=== PATIENT | male | born 1945 | race Caucasian/White ===

== ENCOUNTER → 2017-08-24 11:31 | Outpatient (CLI) | payer MEDICARE, SELFPAY ==
[2017-08-27 15:34] LABS: AST(SGOT) 24 U/L (15-37); Alanine Aminotransfer ALT/SGPT 19 U/L (16-61); Cholesterol 161 mg/dL (200); High Density Lipoprotein 34 mg/dL; Thyroid Stim Hormone (TSH) 1.48 uIU/mL (0.358-3.74); Triglycerides 94 mg/dL; Very Low Density Lipoprotein 19 mg/dL (5-40)
== END ==
PROVIDERS: Family Provider Family Medicine; PCP Family Medicine; Visit Provider Urology
DX: Z12.5 Encounter for screening for malignant neoplasm of prostate (principal); E03.9 Hypothyroidism, unspecified; E78.5 Hyperlipidemia, unspecified; E29.1 Testicular hypofunction
CPT/HCPCS: 36415; 80061; 84153; 84403; 84436; 84443; 84450; 84460; G0103

== ENCOUNTER 2017-10-22 09:30 | Outpatient (RCR) | payer MEDICARE, SELFPAY ==
--- NOTE | 2017-04-06 17:00 | HP.PTEVAL_ITS ---
Patient's Visit Information JORDYN HOUSE is a 71 year old M referred to Physical Therapy by Out of Town Doctor tawanda with a diagnosis of Parkinsons. Date of Evaluation: 04/06/17 Physical Therapist: Lida Schroeder - Visit Plan Frequency: 1x/Week Duration: 2 Months Plan: Timed get up and go test. 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 Taking Rytary extended relase drug and he takes 3 capsules 4X/ day. He gets about 2 good hours out of a 4 hour interval. Pt reports that he is having trouble when he runs out of forgets to take his meds.....his R ankle freezes more than the L (that started in the last year). He has been having trouble freezing when walks recently. He reports no trouble on stairs but always holds both hand rails. He has no hard falls...little slips here and there and able to catch himself. He has a rollator that he uses only occ. He uses the cane/walking stick when he goes out side at home. Inside the home he uses the furniture around the house. Getting in and out of the car is troublesome at times, especially outside of his medicine cycle. Pt wants to work on his balance with his eyes closed, increasing his stride - Objective Gait: pt walks with a very small step length and shuffled gait (can hear both feet scraping along the floor with gait), decreased arm swing and trunk swing, flexed trunk. FGA:16. LE MMT: hip flex, hip abd B 4+/5, B knee flex and knee. 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 Goal Time Frame: 6-8 Weeks Goal 3:: Be able to get up from the ground with out assistance incase he falls where there is nothing around with SBA Goal Time Frame: 6-8 Weeks Goal 4:: Increase FGA Goal 5:: Walking BW 68 feet X2 with increased stride Goal 6:: Test time get up and go to get a baseline and set a goal. Goal Time Frame: 1 Week - Rehabilitation Potential Rehabilitation Potential: Good - Anticipated Interventions Patient/Client Instruction: Educate patient on: Plan of Care For the Purpose of:: To improve muscle performance and motor function, To improve ability to perform ADL's, To increase tolerance to activity/condition/ position, To improve performance and independence with ADL's, To decrease level of supervision to perform tasks, To improve ability of physical actions for home /community/work/leisure, To improve gait and locomotor functions, To improve balance, To improve safety with gait Therapeutic Exercise to Include: Strength training, Balance training, Body mechanics, Postural training For the Purpose of:: To improve muscle performance and motor function, To improve ability to perform ADL's, To increase tolerance to activity/condition/ position, To improve performance and independence with ADL's, To decrease level of supervision to perform tasks, To improve gait and locomotor functions, To improve health of tissue, To improve balance, To improve safety with gait Functional Training to Include: Gait training For the Purpose of:: To improve performance and independence with ADL's, To improve gait and locomotor functions Thank you for the opportunity to evaluate your patient. For Medicare and Medicare HMO plans, please review the plan of care and approve it. It will need to be FAXED BACK to us at [phone] for Medicare purposes. Please let me know if there are questions or concerns regarding this plan of care. Physician Signature: Date:
--- NOTE | 2017-06-09 13:56 | HP.PTREVAL ---
tawanda THOMAS It has been my pleasure to treat JORDYN HOUSE over the last 10 visits for Parkinsons. Please see the progress note below for an update on the physical therapy plan of care! Subjective: Overall pt feels that he is pretty much the same. He still reports that he can not hop, he has trouble with balance in the dark or when working overhead. Objective/Function: FGA 17. Able to get up from the floor from a sitting to a standing position with SBA without UE support. Able to walk BW but needs VC's to increase stride and to keep trunk upright and to shift weight from the front to the back. Occ LOB and CGA used. Pt reports that he still uses the bar in the shower for safety. Pt needs to be reminded to have upright posture, to keep a larger step with gait and arm swing. Plan Plan: 1X/ week for 2 additional weeks to work on increasing stride with fw, bw walking, balance activities, wiorking on overhead activities. 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 Goal Time Frame: 6-8 Weeks Goal Progress: Progressing Goal 3:: Be able to get up from the ground with out assistance incase he falls where there is nothing around with SBA Goal Time Frame: 6-8 Weeks Goal Progress: Goal Met Goal 4:: Increase FGA by 2 points to a score of 19 to decrease fall risk Goal 5:: Walking BW 68 feet X2 with increased stride Goal Time Frame: 2 Weeks Goal Progress: Progressing Goal 6:: Test time get up and go to get a baseline and set a goal. Goal Time Frame: 1 Week Goal Progress: Goal Met Anticipated Interventions Patient/Client Instruction: Educate patient on: Plan of Care For the Purpose of:: To improve muscle performance and motor function, To improve ability to perform ADL's, To increase tolerance to activity/condition/position, To improve performance and independence with ADL's, To decrease level of supervision to perform tasks, To improve ability of physical actions for home/community/work/leisure, To improve gait and locomotor functions, To improve balance, To improve safety with gait Therapeutic Exercise to Include: Strength training, Balance training, Body mechanics, Postural training For the Purpose of:: To improve muscle performance and motor function, To improve ability to perform ADL's, To increase tolerance to activity/condition/position, To improve performance and independence with ADL's, To decrease level of supervision to perform tasks, To improve gait and locomotor functions, To improve health of tissue, To improve balance, To improve safety with gait Functional Training to Include: Gait training For the Purpose of:: To improve performance and independence with ADL's, To improve gait and locomotor functions Please do not hesitate to contact me at [phone] by phone or if you have questions or concerns regarding this new plan of care! Sincerely, Lida Schroeder
--- NOTE | 2017-06-23 13:47 | HP.PTEVAL_ITS ---
Patient's Visit Information JORDYN HOUSE is a 72 year old M referred to Physical Therapy by CANDIDO neff with a diagnosis of Parkinsons. 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 Taking Rytary extended relase drug and he takes 3 capsules 4X/ day. He gets about 2 good hours out of a 4 hour interval. Pt reports that he is having trouble when he runs out of forgets to take his meds.....his R ankle freezes more than the L (that started in the last year). He has been having trouble freezing when walks recently. He reports no trouble on stairs but always holds both hand rails. He has no hard falls...little slips here and there and able to catch himself. He has a rollator that he uses only occ. He uses the cane/walking stick when he goes out side at home. Inside the home he uses the furniture around the house. Getting in and out of the car is troublesome at times, especially outside of his medicine cycle. Pt wants to work on his balance with his eyes closed, increasing his stride - Pain leg and ankle pain Pain Intensity (Out of 10): 5 back pain Pain Intensity (Out of 10): 1 - Objective Gait: pt walks with a very small step length and shuffled gait (can hear both feet scraping along the floor with gait), decreased arm swing and trunk swing, flexed trunk. FGA:16. LE MMT: hip flex, hip abd B 4+/5, B knee flex and knee. 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 Goal Time Frame: 6-8 Weeks Goal 3:: Be able to get up from the ground with out assistance incase he falls where there is nothing around with SBA Goal Time Frame: 6-8 Weeks Goal 4:: Increase FGA by 2 points to a score of 19 to decrease fall risk Goal 5:: Walking BW 68 feet X2 with increased stride Goal Time Frame: 2 Weeks Goal 6:: Test time get up and go to get a baseline and set a goal. Goal Time Frame: 1 Week - Rehabilitation Potential Rehabilitation Potential: Good - Anticipated Interventions Patient/Client Instruction: Educate patient on: Plan of Care For the Purpose of:: To improve muscle performance and motor function, To improve ability to perform ADL's, To increase tolerance to activity/condition/ position, To improve performance and independence with ADL's, To decrease level of supervision to perform tasks, To improve ability of physical actions for home /community/work/leisure, To improve gait and locomotor functions, To improve balance, To improve safety with gait Therapeutic Exercise to Include: Strength training, Balance training, Body mechanics, Postural training For the Purpose of:: To improve muscle performance and motor function, To improve ability to perform ADL's, To increase tolerance to activity/condition/ position, To improve performance and independence with ADL's, To decrease level of supervision to perform tasks, To improve gait and locomotor functions, To improve health of tissue, To improve balance, To improve safety with gait Functional Training to Include: Gait training For the Purpose of:: To improve performance and independence with ADL's, To improve gait and locomotor functions Thank you for the opportunity to evaluate your patient. For Medicare and Medicare HMO plans, please review the plan of care and approve it. It will need to be FAXED BACK to us at [phone] for Medicare purposes. Please let me know if there are questions or concerns regarding this plan of care. Physician Signature: Date:
--- NOTE | 2017-09-15 17:10 | HP.PTREVAL_ITS ---
CANDIDO SON, It has been my pleasure to treat JORDYN HOUSE over the last 13 visits for Parkinsons. Please see the progress note below for an update on the physical therapy plan of care! Subjective: Pt was never properly discharged and his chart was still open from 2 months ago and pt returns to PT with order for PT due to decreasing function per pt subjective. Pt has been on Rotary and now is on an additional med that will help him to have more on time. He has about 2 hours or less on a 4 hour cycle. He reports that he is back to hobbling, his voice is less, he had a fall in the [employer] restaurant as he was trying to hurry and he fell on hands out the door at the restaurant. He is using the can all the time (at least carries it, due to being afraid that off time will happen and he will need his cane). He had 1 shot of botox and a small area....he felt he had no reaction and sees her again in about 1.5 months. Objective/Function: FGA: 14. Gait: pt walks with short stride on the R with fw and bw walking. He walks with flexed trunk and almost more toe walking at this point as apposed to heel to toe gait pattern. He struggles with hip marching and performing motion with slow controlled movement. Stairs: up and down recip with 2 hand rails with decreased hip flexion and he catches his heel on the step periodically. Side stepping: decreased coordination on the R LE ( decreased stride and keeps R foot in front of the L). LE MMT: hip flex, abd, hip ext B 4+/5, B knee flex and ext 4+/5...... Tight B gastroc and HS. Standing on foam with feet together ,,,starts with retro LOB at approx 20 seconds. Standing on foam with feet together with EC... Retro LOB almost immed....Pt does not like to shift his weight. Turn quickly... needs to take a few seconds and steps to make full turn...wide steps. 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 Goal Time Frame: 6-8 Weeks Goal Progress: Progressing Goal 3:: Be able to get up from the ground with out assistance incase he falls where there is nothing around with SBA Goal Time Frame: 6-8 Weeks Goal Progress: Goal Met Goal 4:: Increase FGA by 5 points to a score of 19 to decrease fall risk Goal Progress: Goal Met Goal 5:: Walking BW 68 feet X2 with increased stride Goal Time Frame: 2 Weeks Goal Progress: Progressing Goal 6:: Be able to walk entire lap around dept with increase stride length and arm swing with one reminder to continue to walk with large stride Goal Time Frame: 4-6 Weeks Goal Progress: Goal Met Anticipated Interventions Patient/Client Instruction: Educate patient on: Plan of Care For the Purpose of:: To improve muscle performance and motor function, To improve ability to perform ADL's, To increase tolerance to activity/condition/ position, To improve performance and independence with ADL's, To decrease level of supervision to perform tasks, To improve ability of physical actions for home /community/work/leisure, To improve gait and locomotor functions, To improve balance, To improve safety with gait Therapeutic Exercise to Include: Strength training, Balance training, Body mechanics, Postural training For the Purpose of:: To improve muscle performance and motor function, To improve ability to perform ADL's, To increase tolerance to activity/condition/ position, To improve performance and independence with ADL's, To decrease level of supervision to perform tasks, To improve gait and locomotor functions, To improve health of tissue, To improve balance, To improve safety with gait Functional Training to Include: Gait training For the Purpose of:: To improve performance and independence with ADL's, To improve gait and locomotor functions Please do not hesitate to contact me at [phone] by phone or Fax: if you have questions or concerns regarding this new plan of care! Sincerely, Lida Schroeder
--- NOTE | 2017-10-22 10:53 | HP.PTREVAL_ITS ---
CANDIDO SON, It has been my pleasure to treat JORDYN HOUSE over the last 18 visits for Parkinsons. Please see the progress note below for an update on the physical therapy plan of care! Subjective: Pt reports that he is going to get his battery changed in his brain stimulator next week. He is going to cancel the rest of his appointments and re -schedule when he is able. Objective/Function: Gait: pt is catching R toe/ foot a lot more than used too. Pt needs to be reminded to walk with increase arm swing and stride. Tight B gastroc and HS. Plan Plan: Pt to have start with foam rolling and stretching. Pt to look into getting an ankle brace/AFO. Pt will schedule after surgery when able. 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 Goal Time Frame: 6-8 Weeks Goal Progress: Progressing Goal 3:: Be able to get up from the ground with out assistance incase he falls where there is nothing around with SBA Goal Time Frame: 6-8 Weeks Goal Progress: Goal Met Goal 4:: Increase FGA by 5 points to a score of 19 to decrease fall risk Goal Progress: Goal Met Goal 5:: Walking BW 68 feet X2 with increased stride Goal Time Frame: 2 Weeks Goal Progress: Progressing Goal 6:: Be able to walk entire lap around dept with increase stride length and arm swing with one reminder to continue to walk with large stride Goal Time Frame: 4-6 Weeks Goal Progress: Goal Met Anticipated Interventions Patient/Client Instruction: Educate patient on: Plan of Care For the Purpose of:: To improve muscle performance and motor function, To improve ability to perform ADL's, To increase tolerance to activity/condition/ position, To improve performance and independence with ADL's, To decrease level of supervision to perform tasks, To improve ability of physical actions for home /community/work/leisure, To improve gait and locomotor functions, To improve balance, To improve safety with gait Therapeutic Exercise to Include: Strength training, Balance training, Body mechanics, Postural training For the Purpose of:: To improve muscle performance and motor function, To improve ability to perform ADL's, To increase tolerance to activity/condition/ position, To improve performance and independence with ADL's, To decrease level of supervision to perform tasks, To improve gait and locomotor functions, To improve health of tissue, To improve balance, To improve safety with gait Functional Training to Include: Gait training For the Purpose of:: To improve performance and independence with ADL's, To improve gait and locomotor functions Please do not hesitate to contact me at [phone] by phone or Fax: if you have questions or concerns regarding this new plan of care! Sincerely, Lida Schroeder
== END 2017-10-22 19:00 | disposition home or self-care (01) ==
LOC: PT 09:30
PROVIDERS: Family Provider Family Medicine; PCP Family Medicine
DX: G20 Parkinson's disease (principal); R13.10 Dysphagia, unspecified
CPT/HCPCS: 92507; 92526; 97110; 97116; 97161; 97164; 97530

== ENCOUNTER 2017-12-22 11:30 | Outpatient (RCR) | payer MEDICARE, SELFPAY ==
--- NOTE | 2017-11-12 13:07 | HP.PTREVAL ---
CANDIDO FRY, It has been my pleasure to treat JORDYN HOUSE over the last 19 visits for Parkinsons. Please see the progress note below for an update on the physical therapy plan of care! Subjective: Pt reports that the battery change went well. He feels that he is in limbo between the neurologist and other Dr as Candido is switching practices. He left his AtARIE AT HOME AND HAS NOT HAD IT IN HIS BODY SINCE 6 AM. Pt gets Botex in R ankle next Wednesday. Pt is occ rolling legs at home but wants them done today. Objective/Function: Could really tell that pt did not have his meds today...hard to get big steps in today even with verbal and tactile cues. Plan Plan: Pt to talk to kala Fraga about AFO and see if they feel that he needs it. Goals Goal 1:: I HEP Goal Time Frame: 6-8 Weeks Goal 2:: flakeboard line tender the shower and wash face with having eyes closed without having to hold onto the bar. Goal Time Frame: 6-8 Weeks Goal 3:: Be able to get up from the ground without assistance incase he falls where there is nothing around with SBA Goal Time Frame: 6-8 Weeks Goal 4:: Increase FGA by 5 points to a score of 19 to decrease fall risk Goal Time Frame: 4-6 Weeks Goal 5:: Walking BW 68 feet X 2 with increased stride Goal 6:: Be able to walk entire lap around department with increase stride length and arm swing with one reminder to continue to walk with larger stride Goal Time Frame: 4-6 Weeks Anticipated Interventions Please do not hesitate to contact me at [phone] by phone or if you have questions or concerns regarding this new plan of care! Sincerely, Lida Schroeder
--- NOTE | 2017-11-26 14:01 | HP.PTREVAL ---
CANDIDO FRY, It has been my pleasure to treat JORDYN HOUSE over the last 21 visits for Parkinsons. Please see the progress note below for an update on the physical therapy plan of care! Subjective: Pt reports that he thinks that the botox injections have helped for a few days and not sure how they are working. Pt gets a couple of hours a day that he can not walk. Objective/Function: Gait: Around dept 1 min 30 seconds with 4 verbal cueues to get trubnk back and pickling solution maker R foot with gait. Stairs: up and down recip with 2 hand rails. get up from the floor: Indep with no UE support. BW walking: short stride and decreased stride on the R. Plan Plan: G code next visit. Pt to talk to ekaterinaox about AFO and see if they feel that he needs it. 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 Goal Time Frame: 6-8 Weeks Goal Progress: Goal Met Goal 3:: Be able to get up from the ground without assistance incase he falls where there is nothing around with SBA Goal Time Frame: 6-8 Weeks Goal Progress: Goal Met Goal 4:: Increase FGA by 5 points to a score of 19 to decrease fall risk Goal Time Frame: 4-6 Weeks Goal 5:: Walking BW 68 feet X 2 with increased stride Goal Progress: Progressing Goal 6:: Be able to walk entire lap around department with increase stride length and arm swing with one reminder to continue to walk with larger stride Goal Time Frame: 4-6 Weeks Anticipated Interventions Please do not hesitate to contact me at [phone] by phone or if you have questions or concerns regarding this new plan of care! Sincerely, Lida Schroeder
--- NOTE | 2017-12-22 13:39 | HP.PTDCSUM ---
HP - PT D/C Summary It has been my pleasure to treat JORDYN HOUSE under orders from CANDIDO FRY, for the diagnosis of Parkinsons for a total of 24 visit(s). Discharge Date: 12/22/17 Please see the following information for a summary of their discharge status. - Subjective Subjective: Pt reports that ankle spasms are decreasing. He is foam rolling 1-2X/ week. Pt will be coming in for H&W on Mondays and Fridays and he will do things at home. - Pain R ankle Pain Intensity (Out of 10): 6 L shoulder Pain Intensity (Out of 10): 4 back pain Pain Intensity (Out of 10): 3 - Overall Improvement % Improvement: 90 - Objective Objective/Function: Able to walk around the entire department 1 lap without verbal cues with increase stride (still decreased heel to toe especially on the R) and increase arm swing with upright posture. Able to walk BW 68 feet without verbal cues or LOB. 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 Goal Progress: Goal Met Goal 3:: Be able to get up from the ground without assistance incase he falls where there is nothing around with SBA Goal Progress: Goal Met Goal 4:: Increase FGA by 5 points to a score of 19 to decrease fall risk Goal Progress: Goal Met Goal 5:: Walking BW 68 feet X 2 with increased stride Goal Progress: Goal Met Goal 6:: Be able to walk entire lap around department with increase stride length and arm swing with one reminder to continue to walk with larger stride Goal Progress: Goal Met - Plan Plan: DC PT to [facility] with understanding of what exercises to do at home. - D/C Information Discharge Comments: DC PT If there are questions or concerns regarding this patient's physical therapy, please feel free to call me at [phone]. Thank you for the referral of this patient. Sincerely, Lida Schroeder
== END 2017-12-22 19:00 | disposition home or self-care (01) ==
LOC: PT 11:30
PROVIDERS: Family Provider Family Medicine; PCP Family Medicine
DX: G20 Parkinson's disease (principal); R13.10 Dysphagia, unspecified
CPT/HCPCS: 97110; 97530

== ENCOUNTER 2018-08-02 11:00 | Outpatient (RCR) | payer MEDICARE, SELFPAY ==
--- NOTE | 2018-04-06 15:50 | HP.PTEVAL ---
Patient's Visit Information JORDYN HOUSE is a 72 year old M referred to Physical Therapy by Lorena Fulton MD with a diagnosis of Parkinson's Disease. Date of Evaluation: 04/06/18 Physical Therapist: KENYA Kya - Visit Plan Frequency: 1x/Week Duration: 3 Months Plan: 1X/ week for 12 weeks for high level gait activites/mechanics, balance activities, coordination activities, functional activities such as stairs, transfering in and out of bed and a car, multi-tasking activities with and without walking. with HEP and H&W program. - Subjective Findings: Several years ago he started with deep brain stimulation, He does botox in his R leg and has a follow up with them soon with his Dr Guzman at . He reports that he had a bad fall outside when he got his foot caught inside a soft log and then he fell trying to get back up (twice fw and once BW) and he was also squating once and could not get up. He is having trouble doing anything at the end of his med cycle. He is continuing to work outside as his meds alot. Pt reports some bug like hallucinations since his meds are super high...sometimes he will see crickets crawling across the floor. 1 story home... 2 rails to the basement. He reports that his balance is good unless he isdown on his med cycle. His R ankle has spasm issues... - Pain R ankle pain Pain Intensity (Out of 10): 5 - Objective Gait: Walks with decreased stride, decreased step length and decreased fluidity of step with the R LE, Takes a bigger step with the L leg. slower gait with fw flexed trunk. Needs verbal cues to increase step length and increase speed. Even wth VC's pt will pick remover step length and speed and will slow within the first 5 ssteps and revert back to small shuffled gait with L stride longer than R. He uses a can at times for balance. CATSIB: 75/120. FGA: 12 (pt had decreased balance when looking R and L) His steps decreased in length when an additional task was added such as turning his head or having a conversation. Stairs: pt had some issue with getting his whole foot on the step to ascend stairs but and some eccentric weakness present. Used 2 rails and did a reciprical pattern. L 12 degrees DF and 30 degrees PF. R 0 degrees DF and 30 degrees PF. Rolling: pt struggled with rolling side to side ...decreased motor planning. LE MMT: R ankle DF 4-/5 and L 4+/5, hip flex B 4+/5, hip abd B 4+/5, full ROM bridge, knee flex and knee xt B 4+/5. Pt was able to heel raise. His R foot would only toe raise approx 1/4 normal ROM of the pt;s L foot. Sit to stand: able to stand without the use of his UE's. B HS tightness present - Balance Scores Functional Gait Assessment Score: 12 % Disability: 60.0000 CATSIB Score (Max score 120 seconds): 75 - Goals Goal 1:: I HEP Goal Time Frame: 8-12 Weeks Goal 2:: Be able to roll over on the mat table on first attempt without hesitency Goal Time Frame: 8-12 Weeks Goal 3:: Be able to walk 200 feet with large step length and increased speed without LOB and SBA Goal Time Frame: 8-12 Weeks Goal 4:: Be able to walk 65 feet with head turns and be able to keep stride length and bret consistent. Goal Time Frame: 8-12 Weeks Goal 5:: Increase hamstring length to be able to long sit comfortably Goal Time Frame: 8-12 Weeks - Rehabilitation Potential Rehabilitation Potential: Good - Anticipated Interventions Patient/Client Instruction: Educate patient on: Condition, Plan of Care For the Purpose of:: To increase ROM, To improve muscle performance and motor function, To improve ability to perform ADL's, To increase tolerance to activity/condition/position, To improve performance and independence with ADL's, To decrease level of supervision to perform tasks, To improve ability of physical actions for home/community/work/leisure, To improve gait and locomotor functions, To increase flexibility/ROM, To improve balance Therapeutic Exercise to Include: Strength training, Endurance training, Balance training, Coordination, Postural training, Flexibilty training, Gait and locomotor training, Neuromotor development, Passive ROM, Active ROM, Scapular Strength/Stabilization For the Purpose of:: To improve nutrient delivery to tissue, To increase oxygenation perfusion, To improve muscle performance and motor function, To improve ability to perform ADL's, To increase tolerance to activity/condition/position, To improve performance and independence with ADL's, To decrease level of supervision to perform tasks, To improve ability of physical actions for home/community/work/leisure, To improve gait and locomotor functions, To increase flexibility/ROM, To improve endurance, To improve balance, To improve safety with gait Functional Training to Include: Functional home training, Gait training For the Purpose of:: To improve nutrient delivery to tissue, To improve muscle performance and motor function, To improve ability to perform ADL's, To increase tolerance to activity/condition/position, To improve performance and independence with ADL's, To increase flexibility/ROM, To improve safety with gait Thank you for the opportunity to evaluate your patient. For Medicare and Medicare HMO plans, please review the plan of care and approve it. It will need to be FAXED BACK to us at [phone] for Medicare purposes. For Medicare only, by signing this I certify the plan of care. Please let me know if there are questions or concerns regarding this plan of care. Physician Signature: Date:
--- NOTE | 2018-06-24 12:03 | HP.PTREVAL_ITS ---
Lorena Fulton MD, It has been my pleasure to treat JORDYN HOUSE over the last 10 visits for Parkinson's Disease. Please see the progress note below for an update on the physical therapy plan of care! Subjective: Pt reports that he thinks that his Dr appointment is in about 6 weeks. He has fallen 6 times recently. He has his normal ankle pain today. He reports that he could not walk this morning. It took him an hour to dress himself. His voice is not so good. He is seeing imaginary things all the time (flying bugs). The DTD class makes him feel good...he comes home tired. Pt plans on starting to garden soon and he likes to do them on his hands and knees. Objective/Function: Pt is able to slow his gait with somewhat normal step length if we give verbal and tactile cues. Pt still struggles with HS tightness in Long sitting. He is able to roll side to side with less struggle but with some still present. Plan Plan: Re-assess next visit. 1X/ week for 12 weeks for high level gait activites/mechanics, balance activities, coordination activities, functional activities such as stairs, transfering in and out of bed and a car, multi- tasking activities with and without walking. with HEP and H&W program. Goals Goal 1:: I HEP Goal Time Frame: 8-12 Weeks Goal Progress: Progressing Goal 2:: Be able to roll over on the mat table on first attempt without hesitency Goal Time Frame: 8-12 Weeks Goal Progress: Progressing Goal 3:: Be able to walk 200 feet with large step length and increased speed without LOB and SBA Goal Time Frame: 8-12 Weeks Goal Progress: Progressing Goal 4:: Be able to walk 65 feet with head turns and be able to keep stride length and bret consistent. Goal Time Frame: 8-12 Weeks Goal Progress: Progressing Goal 5:: Increase hamstring length to be able to long sit comfortably Goal Time Frame: 8-12 Weeks Goal Progress: Progressing Anticipated Interventions Patient/Client Instruction: Educate patient on: Condition, Plan of Care For the Purpose of:: To increase ROM, To improve muscle performance and motor function, To improve ability to perform ADL's, To increase tolerance to activity/condition/position, To improve performance and independence with ADL's, To decrease level of supervision to perform tasks, To improve ability of physical actions for home/community/work/leisure, To improve gait and locomotor functions, To increase flexibility/ROM, To improve balance Therapeutic Exercise to Include: Strength training, Endurance training, Balance training, Coordination, Postural training, Flexibilty training, Gait and locomotor training, Neuromotor development, Passive ROM, Active ROM, Scapular Strength/Stabilization For the Purpose of:: To improve nutrient delivery to tissue, To increase oxygenation perfusion, To improve muscle performance and motor function, To improve ability to perform ADL's, To increase tolerance to activity/condition/position, To improve performance and independence with ADL's, To decrease level of supervision to perform tasks, To improve ability of physical actions for home/community/work/leisure, To improve gait and locomotor functions, To increase flexibility/ROM, To improve endurance, To improve balance, To improve safety with gait Functional Training to Include: Functional home training, Gait training For the Purpose of:: To improve nutrient delivery to tissue, To improve muscle performance and motor function, To improve ability to perform ADL's, To increase tolerance to activity/condition/position, To improve performance and indep endence with ADL's, To increase flexibility/ROM, To improve safety with gait Please do not hesitate to contact me at [phone] by phone or if you have questions or concerns regarding this new plan of care! Sincerely, KENYA Kay
--- NOTE | 2018-08-02 11:56 | HP.PTDCSUM ---
HP - PT D/C Summary It has been my pleasure to treat JORDYN HOUSE under orders from Lorena Fulton MD, for the diagnosis of Parkinson's Disease for a total of 16 visit(s). Discharge Date: 08/02/18 Please see the following information for a summary of their discharge status. - Subjective Subjective: Pt reports that he had about 2 hours without any issie of leg pain etc. He also had a episode of tremor in his R hand for about an hour and he did not have any tremor before. He is outside and doing his gardening and mowin. he is staying active. - Pain R ankle pain Pain Intensity (Out of 10): 3 - Overall Improvement % Improvement: 80 - Objective Objective/Function: Pt is able to roll side to side without difficulty. Pt is able to walk with head turns with slight veerign but able to correct but step length remains increasesed. . Gait: pt walks with decreased R stride length and decreased R heel to toe gait pattern with slight forefoot abd. Pt still needs verbal cues to increase step length or garbage pick up man feet while turning especially when tired. - Goals Goal 1:: I HEP Goal Progress: Goal Met Goal 2:: Be able to roll over on the mat table on first attempt without hesitency Goal Progress: Goal Met Goal 3:: Be able to walk 200 feet with large step length and increased speed without LOB and SBA Goal Progress: Progressing Goal 4:: Be able to walk 65 feet with head turns and be able to keep stride length and bret consistent. Goal Progress: Goal Met Goal 5:: Increase hamstring length to be able to long sit comfortably Goal Progress: Goal Met - Plan Plan: DC PT to HEP/H&W and DTD class. - D/C Information Discharge Comments: DC PT to HEP/ H&W If there are questions or concerns regarding this patient's physical therapy, please feel free to call me at [phone]. Thank you for the referral of this patient. Sincerely, Lida Schroeder, MPT
== END 2018-08-02 19:00 | disposition home or self-care (01) ==
LOC: PT 11:00
PROVIDERS: Family Provider Family Medicine; PCP Family Medicine; Visit Provider Family Medicine
DX: G20 Parkinson's disease (principal)
CPT/HCPCS: 97110; 97161; 97530

== ENCOUNTER → 2018-08-29 14:42 | Outpatient (CLI) | payer MEDICARE, SELFPAY ==
[2018-08-29 16:22] LABS: Anion Gap 6 (5-15); BUN 17 mg/dL (7-18); BUN/Creat Ratio 19.7 RATIO (10-20); Calcium,Total 8.8 mg/dL (8.5-10.1); Chloride 103 mmol/L (98-107); Creatinine, Serum 0.86 mg/dL (0.70-1.30); EST Glomerular Filtration Rate 93 mL/min (>60); Est Glom Filt Rate - Afr Amer 112 mL/min (>60); Glucose 97 mg/dL (74-106); Sodium Level 139 mmol/L (136-145); Thyroid Stim Hormone (TSH) 2.52 uIU/mL (0.358-3.74)
[2018-08-29 16:44] LABS: Hematocrit 49.3 % (40-54); Mean Corp Hgb Conc 32.5 g/gl (32-36); Mean Corpuscular Hgb 29.6 pg (27.0-32.0); Mean Corpuscular Volume 91.3 fL (80-94); Mean Platelet Vol. 9.7 fl (6.2-12.0); Platelet Count 294 K/mm3 (150-450); RBC Distribution Width CV 13.7 % (11.6-14.6); RBC Distribution Width SD 45.6 fl (35.1-43.9)
[2018-08-29 17:28] LABS: Scan Indicated on CBC? Y/N NO
== END ==
PROVIDERS: Family Provider Family Medicine; PCP Family Medicine; Referring Provider Urology; Visit Provider Urology
DX: N40.0 Benign prostatic hyperplasia without lower urinary tract symptoms (principal); E29.1 Testicular hypofunction; E03.9 Hypothyroidism, unspecified
CPT/HCPCS: 36415; 80048; 84153; 84403; 84443; 85027

== ENCOUNTER → 2018-09-16 09:17 | Outpatient (CLI) | payer MEDICARE, SELFPAY | PROVIDERS: Family Provider Family Medicine; PCP Family Medicine; Referring Provider Urology; Visit Provider Urology | DX: E29.0 Testicular hyperfunction (principal) | CPT/HCPCS: 36415; 84403 ==

== ENCOUNTER 2019-05-23 10:00 | Outpatient (RCR) | payer MEDICARE, SELFPAY ==
--- NOTE | 2018-12-23 13:56 | HP.PTEVAL_ITS ---
Patient's Visit Information JORDYN HOUSE is a 73 year old M referred to Physical Therapy by JINNY HARVEY with a diagnosis of PD, gait training, Spasms in feet and lower legs( heat and manual manip). Date of Evaluation: 12/23/18 Physical Therapist: KENYA Kay - Visit Plan Frequency: 1x/Week Duration: 3 Months Plan: ++++Working in front of a mirror is recommended at this time so pt can see and try and slow his movements++++. 1X/ week for 12 weeks to work on slow direct corrdinated movements, dual tasking, gait training, balance exercises, functional activities such as turning 180 degrees, B LE stick roll out and stretching of B HS and gastroc B ( possible trial of heat and maybe some MT to B below the knee posterior leg musculature) with direct HEP with handouts so pt can continue at home on his own. - Subjective Findings: Pt is a known pt to me. He was diagnosed with PD 13-14 years ago and has been on meds for 10 years. He has noticed a decrease in his walking ability and spasms in B feet and legs and worse in the R LE. He has had 2 falls in the last month. He uses a walking stick but some days he uses the walker to be safe. He has steps to the basement that he uses occ and it has 2 rails with it. All bed and bath are on the same floor. He is not driving and has not for 3 years. He notices that he has a cough from eating and drinking and he tries to take small sips.... he notices that he talks clear in the morning and by evening he can bearly talk more than a whisper.... He is not in speech therapy at this time. He reports that he has trouble getting started walking at times and feels like he tries but he can not get anywhere. He took his meds at 12 and right now he is at a good point in his med cycle. - Pain B ankle pain Pain Intensity (Out of 10): 3 - Objective Gait: Walks with shortened stride especially on the R LE, small steppage gait with flexed trunk and walks with a walking stick in his hand but does not use it. TUG 15:13. FGA: 10. LE MMT: Hip flex B 4-/5, B knee ext, flex 4+/5, B hip ext ( full ROM bridge), B hip abd 4+/5. Pt is able to walk on toes but has some LOB when trying to walk on heels. Hand over hand coordination: moves with fast motion and aftr about 15 seconds he is out of sequence. Toe tapping coordination: decreased quickness on the R..... alternating toe taps pt is ablet o control pretty good. sitting opp arm and leg coordination: small motions and unable to maintain opp arm and leg. Pt seems to have decreased ability to follow commands correctly.... such as extends knee when told to bend his knee, turns right when asked to move straight. Tight B gastroc and B Hamstrings B - Balance Scores Functional Gait Assessment Score: 10 % Disability: 66.6700 - Goals Goal 1:: I detailed( with handouts) HEP Goal Time Frame: 6-8 Weeks Goal 2:: Increase gait pattern to walk with increase stride, more upright trunk posture. Goal Time Frame: 8-12 Weeks Goal 3:: Increase TUG to 12 to decrease change of falling Goal Time Frame: 8-12 Weeks Goal 4:: Increase FGA by 5 points to decrease fall risk ( at time of eval: score was a 10) Goal Time Frame: 8-12 Weeks - Anticipated Interventions Patient/Client Instruction: Educate patient on: Condition, Plan of Care For the Purpose of:: To improve muscle performance and motor function, To improve ability to perform ADL's, To increase tolerance to activi ty/condition/position, To improve performance and independence with ADL's, To decrease level of supervision to perform tasks, To improve ability of physical actions for home/community/work/leisure, To improve gait and locomotor functions, To improve balance, To improve safety with gait Therapeutic Exercise to Include: Strength training, Balance training, Postural training, Flexibilty training, Gait and locomotor training, Active ROM For the Purpose of:: To improve muscle performance and motor function, To improve ability to perform ADL's, To increase tolerance to activity/condition/position, To improve performance and independence with ADL's, To improve ability of physical actions for home/community/work/leisure, To improve gait and locomotor functions, To increase flexibility/ROM, To improve balance, To improve safety with gait Functional Training to Include: Gait training For the Purpose of:: To improve muscle performance and motor function, To improve ability to perform ADL's, To increase tolerance to activity/condition/position, To improve performance and independence with ADL's, To decrease level of supervision to perform tasks, To improve ability of physical actions for home/community/work/leisure, To improve gait and locomotor functions, To improve balance, To improve safety with gait Thank you for the opportunity to evaluate your patient. For Medicare and Medicare HMO plans, please review the plan of care and approve it. It will need to be FAXED BACK to us at [phone] for Medicare purposes. For Medicare only, by signing this I certify the plan of care. Please let me know if there are questions or concerns regarding this plan of care. Physician Signature: Date:
--- NOTE | 2019-01-30 10:31 | HP.PTREVAL_ITS ---
JINNY GUZMAN, It has been my pleasure to treat JORDYN HOUSE over the last 6 visits for PD, gait training, Spasms in feet and lower legs( heat and manual manip). Please see the progress note below for an update on the physical therapy plan of care! Subjective: He reports that he had almost remission on Wednesday, Wednesday and Wednesday and did not need his walking stick. He was excited and looking at it like a blessing. Now his symptoms are back. Pt sees the nurse practicioner ramy for Dr Guzman. Objective/Function: Improved side stepping and turn 180 degrees... bouncing ball sequence is still really difficult for the pt. Plan Plan: ++++Working in front of a mirror is recommended at this time so pt can see and try and slow his movements++++. 1X/ week for 12 weeks to work on slow direct corrdinated movements, dual tasking, gait training, balance exercises, functional activities such as turning 180 degrees, B LE stick roll out and stretching of B HS and gastroc B ( possible trial of heat and maybe some MT to B below the knee posterior leg musculature) with direct HEP with handouts so pt can continue at home on his own. Goals Goal 1:: I detailed( with handouts) HEP Goal Time Frame: 6-8 Weeks Goal 2:: Increase gait pattern to walk with increase stride, more upright trunk posture. Goal Time Frame: 8-12 Weeks Goal 3:: Increase TUG to 12 to decrease change of falling Goal Time Frame: 8-12 Weeks Goal 4:: Increase FGA by 5 points to decrease fall risk ( at time of eval: score was a 10) Goal Time Frame: 8-12 Weeks Anticipated Interventions Patient/Client Instruction: Educate patient on: Condition, Plan of Care For the Purpose of:: To improve muscle performance and motor function, To improve ability to perform ADL's, To increase tolerance to activity/condition/position, To improve performance and independence with ADL's, To decrease level of supervision to perform tasks, To improve ability of physical actions for home/community/work/leisure, To improve gait and locomotor functions, To improve balance, To improve safety with gait Therapeutic Exercise to Include: Strength training, Balance training, Postural training, Flexibilty training, Gait and locomotor training, Active ROM For the Purpose of:: To improve muscle performance and motor function, To improve ability to perform ADL's, To increase tolerance to activity/condi tion/position, To improve performance and independence with ADL's, To improve ability of physical actions for home/community/work/leisure, To improve gait and locomotor functions, To increase flexibility/ROM, To improve balance, To improve safety with gait Functional Training to Include: Gait training For the Purpose of:: To improve muscle performance and motor function, To improve ability to perform ADL's, To increase tolerance to activity/condition/position, To improve performance and independence with ADL's, To decrease level of supervision to perform tasks, To improve ability of physical actions for home/community/work/leisure, To improve gait and locomotor functions, To improve balance, To improve safety with gait Please do not hesitate to contact me at [phone] by phone or if you have questions or concerns regarding this new plan of care! Sincerely, Lida Schroeder, MPT
--- NOTE | 2019-02-28 11:34 | HP.PTREVAL ---
JINNY HARVEY, It has been my pleasure to treat JORDYN HOUSE over the last 10 visits for PD, gait training, Spasms in feet and lower legs( heat and manual manip). Please see the progress note below for an update on the physical therapy plan of care! Subjective: Pt reports that he is walking better today. He did bring a cane for safety. He fell over the weekend and not sure why he fell in his kitchen. His R hip feels brusised. Objective/Function: FGA: 11. Gait: walks with shuffled gait ( does not pick feet up), sgort stride length, flexed trunk. LEFS: TU.5. Pt has trouble with recieving verbal directions and making his body perform them. Plan Plan: 1X/ week for 3 weeks for HEP to work on slow direct corrdinated movements, dual tasking, gait training, balance exercises, functional activities such as turning 180 degrees, B LE stick roll out and stretching of B HS and gastroc B ( possible trial of heat and maybe some MT to B below the knee posterior leg musculature) with direct HEP with handouts so pt can continue at home on his own. Goals Goal 1:: I detailed( with handouts) HEP Goal Time Frame: 6-8 Weeks Goal 2:: Increase gait pattern to walk with increase stride, more upright trunk posture. Goal Time Frame: 8-12 Weeks Goal 3:: Increase TUG to 12 to decrease change of falling Goal Time Frame: 8-12 Weeks Goal 4:: Increase FGA by 5 points to decrease fall risk ( at time of eval: score was a 10) Goal Time Frame: 8-12 Weeks Goal Progress: Progressing Anticipated Interventions Patient/Client Instruction: Educate patient on: Condition, Plan of Care For the Purpose of:: To improve muscle performance and motor function, To improve ability to perform ADL's, To increase tolerance to activity/condition/position, To improve performance and independence with ADL's, To decrease level of supervision to perform tasks, To improve ability of physical actions for home/community/work/leisure, To improve gait and locomotor functions, To improve balance, To improve safety with gait Therapeutic Exercise to Include: Strength training, Balance training, Postural training, Flexibilty training, Gait and locomotor training, Active ROM For the Purpose of:: To improve muscle performance and motor function, To improve ability to perform ADL's, To increase tolerance to activity/condition/position, To improve performance and independence with ADL's, To improve ability of physical actions for home/community/work/leisure, To improve gait and locomotor functions, To increase flexibility/ROM, To improve balance, To improve safety with gait Functional Training to Include: Gait training For the Purpose of:: To improve muscle performance and motor function, To improve ability to perform ADL's, To increase tolerance to activity/condition/position, To improve performance and independence with ADL's, To decrease level of supervision to perform tasks, To improve ability of physical actions for home/community/work/leisure, To improve gait and locomotor functions, To improve balance, To improve safety with gait Please do not hesitate to contact me at [phone] by phone or if you have questions or concerns regarding this new plan of care! Sincerely, Lida Schroeder, MPT
--- NOTE | 2019-05-23 10:58 | HP.PTDCSUM ---
HP - PT D/C Summary It has been my pleasure to treat JORDYN HOUSE under orders from JINNY GUZMAN, for the diagnosis of PD, gait training, Spasms in feet and lower legs( heat and manual manip) for a total of 19 visit(s). Discharge Date: 05/23/19 Please see the following information for a summary of their discharge status. - Subjective Subjective: Pt reports that he 2 appointments with [address] Guzman and [address] Tapia in May. Pt reports that he has been doing exercises here at and has been doing exercises at home as well. His will be here for AT twice a week and will continue to do his exercises here as well. He feels good with setting up the machines etc.... He reports that he has had no falls, just a couple near falls. He reports that his R foot still spasms. He feels uplifted with the DTD class and reports that it gives him hope and uplifts him. - Pain B ankle pain Pain Intensity (Out of 10): 4 - Overall Improvement % Improvement: 20 - Objective Objective/Function: Pt still needs verbal cues to increase stride length. - Goals Goal 1:: I detailed( with handouts) HEP Goal Progress: Goal Met Goal 2:: Increase gait pattern to walk with increase stride, more upright trunk posture. Goal Progress: Progressing Goal 3:: Increase TUG to 12 to decrease change of falling Goal Progress: Goal Met Goal 4:: Increase FGA by 5 points to decrease fall risk ( at time of eval: score was a 10) Goal Progress: Goal Met - Plan Plan: [facility] HEP and DTD class - D/C Information Discharge Comments: DC PT to Health and wellness program, DTD, and HOME exercise program. If there are questions or concerns regarding this patient's physical therapy, please feel free to call me at [phone]. Thank you for the referral of this patient. Sincerely, Lida Schroeder, MPT
== END 2019-05-23 19:00 | disposition home or self-care (01) ==
LOC: PT 10:00
PROVIDERS: Family Provider Family Medicine; PCP Family Medicine
DX: G20 Parkinson's disease (principal); G24.9 Dystonia, unspecified
CPT/HCPCS: 97110; 97161; 97530

== ENCOUNTER → 2019-09-08 09:59 | Outpatient (CLI) | payer MEDICARE, SELFPAY ==
[2019-09-08 10:44] LABS: Hematocrit 46.9 % (40-54); Hemoglobin 14.5 g/dL (13.0-16.5); Mean Corp Hgb Conc 30.9 g/dL (32-36); Mean Corpuscular Hgb 28.5 pg (27.0-32.0); Mean Corpuscular Volume 92.3 fL (80-94); Mean Platelet Vol. 9.8 fl (6.2-12.0); Platelet Count 301 K/mm3 (150-450); RBC Distribution Width CV 13.9 % (11.6-14.6); RBC Distribution Width SD 47.4 fl (35.1-43.9); Red Blood Count 5.08 M/mm3 (4.6-6.2); White Blood Count 8.2 K/mm3 (4.4-11.0)
[2019-09-08 11:16] LABS: PSA,Total - Annual Screen 0.76 ng/mL (0.00-4.00); Thyroid Stim Hormone (TSH) 2.66 uIU/mL (0.358-3.74)
== END ==
PROVIDERS: PCP Family Medicine; Referring Provider Nurse Practitioner Adult Health; Visit Provider Nurse Practitioner Adult Health
DX: E29.1 Testicular hypofunction (principal); Z12.5 Encounter for screening for malignant neoplasm of prostate
CPT/HCPCS: 36415; 84153; 84403; 84443; 85027; G0103

== ENCOUNTER → 2019-11-01 13:08 | Outpatient (CLI) | payer MEDICARE, SELFPAY ==
--- NOTE | 2019-11-01 13:30 | SP.MBSS_ITS ---
PRIMARY / SECONDARY DIAGNOSIS: dysphagia (R13.10) CURRENT DIET (SOLIDS): regular ? soft textures (IDDSI: 6) CURRENT DIET (LIQUIDS): nectar thickened liquids (IDDSI: 2) DENTITION: natural upper / lower dentition MENTAL STATUS: sufficient for participation RESPIRATORY STATUS: O2 via room air CURRENT FUNCTIONAL AMBULATION CATEGORY (FAC): 4 (independent level surfaces only) REASON FOR REFERRAL: The Patient is a 74-year-old male referred for a modified barium swallow (MBS) study to objectively assess the Patients oropharyngeal swallow function under fluoroscopy secondary to the diagnosis of Parkinson?s disease. Both the patient and his report a gradual decline in PO intake tolerance, with an additional 30lb weight loss reported over the past year. MEDICAL HISTORY: Parkinson?s disease status post deep brain stimulation of the subthalamic nucleus, sleep apnea. PREVIOUS MODIFIED BARIUM SWALLOW STUDY RESULTS: 04/23/2016 MBS revealed mild to moderate oropharyngeal dysphagia with intermittent deep penetration without complete ejection of thin liquids 10/12/2016 MBS revealed mild to moderate oropharyngeal dysphagia with consistent deep penetration without complete ejection of thin liquids 12/16/2016 MBS revealed mild to moderate oropharyngeal dysphagia with SILENT aspiration of thin liquids 02/12/2017 MBS revealed moderate oropharyngeal dysphagia with transient SILENT aspiration of thin liquids. ASSESSMENT PARAMETERS: The Patient participated in a Modified Barium Swallow (MBS) study on 11/01/2019. This study was recorded in the lateral view and images were sent to PACs for storage. Scoring was completed through each trial using the 8- point Penetration-Aspiration Scale (PAS) and the Videofluoroscopic Scale Score (VSS), and summarized via the Modified Barium Swallow Impairment Profile (MBSImP) and the Bolus Residue Scale (BRS), with severity scoring through the Dysphagia Severity Rating Scale (DSRS) and the Dysphagia Classification Scale (DCS), and recommended diet textures through the International Dysphagia Diet Standardisation Initiative (IDDSI) RESULTS OF THE EVALUATION: The Patient presents with moderate to severe oropharyngeal dysphagia (DSRS: 5; DCS: D3) with grade III and IV SILENT aspiration of thin and nectar thickened liquids with severe pharyngeal dysmotility secondary to the diagnosis of Parkinson?s disease OBJECTIVE ASSESSMENT OF SWALLOW FUNCTION (QUANTITATIVE ? PER TRIAL): PENETRATION / ASPIRATION SCALE (ANGUIANO): 1 = does not enter airway 2 = enters airway/above vocal folds/ejected 3 = enters airway/above vocal folds/not ejected 4 = enters airway/contacts vocal folds/ejected 5 = enters airway/contacts vocal folds/not ejected 6 = enters airway/below vocal folds/ejected 7 = enters airway/below vocal folds/not ejected despite effort 8 = enters airway/below vocal folds/no effort VIDEOFLOROSCOPIC SCALE SCORE (ANGUIANO): Grade I = aspiration of material that has penetrated into the laryngeal vestibule, intact cough reflex Grade II = aspiration < 10 % of the bolus, intact cough reflex Grade III = aspiration of < 10 % of the bolus, reduced cough reflex or aspiration of > 10 % of the bolus, intact cough reflex Grade IV = aspiration of > 10 % of the bolus, reduced cough reflex PENETRATION / ASPIRATION SCALE (SCORE) WITH VIDEOFLOROSCOPIC SCALE SCORE: Thin liquid - 5 mL tsp.: 1 Thin liquids via straw (single sip): 8 ? Grade III Thin liquids via straw (single sip): 3 Thin liquids via straw (single sip): 3 Thin liquids via straw (chin tuck): 8 ? Grade III Thin liquids via straw (chin tuck): 8 ? Grade IV Suarez thickened liquids via straw (single sip): 8 ? Grade III Suarez thickened liquids via straw (single sip): 8 ? Grade III Suarez thickened liquids via straw (single sip): 1 Suarez thickened liquids via straw (single sip): 1 Suarez thickened liquids via straw (single sip): 1 Pudding via spoon: 1 Suarez thickened liquids via straw (single sip): 1 Regular textured cookie: NA* Suarez thickened liquids via straw (single sip): 8 ? Grade III Suarez thickened liquids via straw (single sip): 8 ? Grade III Honey thickened liquids via straw (single sip): 1 Honey thickened liquids via straw (single sip): 1 * required liquid chaser OBJECTIVE ASSESSMENT OF SWALLOW FUNCTION (QUANTITATIVE ? AGGREGATE): MODIFIED BARIUM SWALLOW IMPAIRMENT PROFILE (MBSImP) LABIAL SEAL: 0 (of 4) no labial escape TONGUE CONTROL: 3 (of 3) posterior escape > 50% BOLUS PREPARATION / MASTICATION: 2 (of 3) disorganized chewing; pieces unchewed BOLUS TRANSPORT / LINGUAL MOTION: 3 (of 4) repetitive / disorganized motion ORAL RESIDUE: 2 (of 4) residue collection on oral structures INITIATION OF PHARYNGEAL SWALLOW: 2 (of 4) posterior surface of epiglottis SOFT PALATE ELEVATION: 4 (of 4) escape to nostril with emission LARYNGEAL ELEVATION: 1 (of 3) partial superior movement / approximation ANTERIOR HYOID EXCURSION: 2 (of 2) no movement EPIGLOTTIC MOVEMENT: 2 (of 2) no inversion LARYNGEAL VESTIBULE CLOSURE: 1 (of 2) incomplete closure PHARYNGEAL STRIPPING WAVE: 2 (of 2) absent PE SEGMENT OPENIN (of 3) minimal distension / duration; marked obstruction TONGUE BASE RETRACTION: 3 (of 4) wide column of contrast PHARYNGEAL RESIDUE: 3 (of 4) majority of contrast remaining ESOPHAGEAL BOLUS CLEARANCE: could not view BOLUS RESIDUE SCALE (BRS): BRS SCORE: 6 (of 6) BRS SCORE DESCRIPTION: residue in valleculae, posterior pharyngeal wall, and piriform sinus OBJECTIVE ASSESSMENT OF SWALLOW FUNCTION (SEVERITY GRADING): DYSPHAGIA SEVERITY RATING SCALE (DSRS): DSRS SEVERITY SCORE: 5 (of 6) DSRS SCORE DESCRIPTION: moderate to severe dysfunction; patient aspirates 5% to 10% on one or more consistencies, with potential for aspiration on all consistencies; potential for aspiration minimized by specific swallow instructions; cough reflex absent or nonprotective; if pulmonary status is compromised, NPO may be indicated. DYSPHAGIA CLASSIFICATION SCALE (DCS): DCS SEVERITY SCORE: D3 (severe) DCS CLASSIFICATION CHARACTERISTICS: moderate to severe stasis, with the restriction of more than one food consistency OBJECTIVE ASSESSMENT OF SWALLOW FUNCTION (QUALITATIVE): ORAL PREPARATORY PHASE: functional mastication, albeit longer in duration, somewhat disjointed, and lacking full rotary mastication; sufficient anterior oral containment during oral manipulation; preserved management of breathing / bolus formation ORAL TRANSITIONAL PHASE: increased duration of transition with noticeably discoordinated lingual movements (lingual undulations); inconsistent oral clearance without side specific consolidation; intermittent premature posterior bolus loss PHARYNGEAL PHASE: mild pharyngeal phase delay dyssynchrony; marked reduction in hyolaryngeal excursion and duration with insufficient laryngeal vestibule pressure generated to expel penetrated material; profound pharyngeal dysmotility most prominently with thicker viscosities. with consolidation throughout the pharyngeal arena, with more contrast passing through the nasal cavity than to the esophagus on one occasion; marked velopharyngeal insufficiency with copious nasoregurgitation of thin and nectar thickened viscosities, with an audible quality to deglutition associated with insufficient velopharyngeal closure; prandial and post prandial penetration and SILENT aspiration of thin and nectar thickened viscosities ESOPHAGEAL PHASE: no obvious esophageal phase abnormalities observed. CONTRIBUTING / COMPLICATING FACTORS AND NOTABLE FINDINGS: absent cough in response to tracheobronchial aspiration (atussia); weak cued volitional cough intensity generated to expel penetrated material / tracheobronchial aspiration (dystussia); some images complicated by frequent motion / movement; RESPONSE TO STRATEGIES: all deficits appear to be managed with reduction in bolus rate / volume adjustments and diet texture / viscosity adjustments; insufficient effects noted from a variety of compensatory strategies implemented across studies, most notably with execution of the chin tuck posture (marked uptake in nasal regurgitation) DYSPHAGIA ASSOCIATED MEDICAL CONSIDERATIONS / INTERVENTION CONSIDERATIONS: The Patient was noted to SILENTLY aspirate with thin and nectar thickened liquids, with clinical assessment at bedside relying on identification of classic overt signs and symptoms of aspiration considered unreliable. I would consider the Patient to be at a higher risk of aspiration related medical complications / aspiration pneumonia / aspiration related pulmonary syndrome secondary to the diagnosis of Parkinson?s disease, presence of dysphagia and extensive pharyngeal phase impairment, presence and extent of SILENT aspiration of multiple viscosities under fluoroscopy, potential for tracheobronchial aspiration of more dense viscosities, the Patient?s compromised airway defenses (dystussia / atussia), and his advancing age and declining functional status. No guarantee of prolonged tolerance of honey thickened liquids; cannot assume that the Patient will be able to tolerate aspiration of smaller volumes of thicker viscosities vs. larger volumes of thinner viscosities. I would consider this Patient to be a high risk for malnutrition and dehydration due to the the extent of recommended liquid viscosities / diet texture restrictions and the related negative impact on palatability / intake pleasure / quality of life and anticipated smaller PO intake quantities, his higher risk for early satiety with recommended thicker viscosities, reduced rate of intake with slower viscosities, recent significant unexplained weight loss, the presence of neurogenic comorbidities (up to 30% of neurological patients with dysphagia present or are at risk of malnutrition), his advancing age (up to 55% of frail older patients with dysphagia present or are at risk of malnutrition), and the severity of dysphagia. The Patient may require intervention to reduce the risk of malnutrition, with considerations for food enrichment (increase nutrient density without increasing volume) and oral nutritional supplementation. I would strongly consider a referral to a registered clinical dietitian. I would consider the Patients quality of life if the Patient and Patient?s family request advancement to less restrictive diet due to the progressive nature of the Patient?s disorders, ONLY if all parties comprehend the severity of the Patient?s swallow deficits and concomitant medical complications associated with silent aspiration. INTERVENTION RECOMMENDATIONS AND CONSIDERATIONS: The Patient requires skilled speech-language intervention targeting diet texture management and training / implementation of recommended compensatory strategies; training, implementation, and Patient / caregiver education regarding implementation of the [place] Free Water Protocol (FFWP); Patient and caregiver education regarding dysphagia associated with Parkinson?s disease; Patient and caregiver training targeting meal preparation / thickened liquid preparation. I would consider training and implementation of oropharyngeal strengthening exercises to facilitate improved oropharyngeal strength and coordination, though significant improvements are unlikely due to the attributed etiology of the Patients swallow deficit. The Patient would benefit from continued skilled speech-language intervention targeting hypokinetic dysarthria via training and implementation of the [facility] Voice Therapy (LSVT) method. POST ASSESSMENT EDUCATION: The results and recommendations were discussed with the Patient and the Patients family immediately following MBS completion, with the Patient and the Patients family verbalizing understanding and agreement with all recommendations and education provided. We discussed factors impacting effects of aspiration, to include: the quantity of aspiration, the depth of aspiration (trachea or distal airways), and the physical properties of the aspirate. We discussed consequences of oropharyngeal dysphagia, to include pulmonary complications from tracheobronchial aspiration; potential for airway obstruction / asphyxiation (higher with the volume of retention); inadequate oral intake because of dysphagia; reduced liquid intake resulting in dehydration; reduced caloric intake resulting in unintentional and potentially medically complicating loss of weight; impairment in mental and physical condition to include higher risk for social isolation / anxiety / depression, increased disability rates, and lengthening of healing; complications in overall course of care with later discharge from acute admissions / increased length of hospitalizations, increased likelihood for discharge to senior care, and overall worse rehabilitation outcomes. DIET TEXTURE RECOMMENDATIONS: Will recommend a pureed textured (IDDSI: 4), honey thickened liquid (IDDSI: 3) diet pending further discussion with the patient and family. RECOMMENDED COMPENSATORY STRATEGIES: Reduced bolus volume / rate of ingestion, liquid chaser at reasonable intervals, seated upright at 90 degrees during PO intake, remain upright for 30-60 minutes post meal (GERD precaution), medications crushed in purees. IMAGE COUNT: [id number] Sj Zimmreman M.A., SAIGE-AUTOMATIC WINDER OPERATOR, CBIS MBSImP Certified, LSVT Certified [facility] Speech-Language Pathology Department Email: [email or web address]
== END ==
PROVIDERS: PCP Family Medicine
DX: G20 Parkinson's disease (principal); R13.10 Dysphagia, unspecified
CPT/HCPCS: 74230; 92611

== ENCOUNTER → 2019-12-11 10:27 | Outpatient (CLI) | payer MEDICARE, SELFPAY ==
--- NOTE | 2019-12-11 10:36 | EKG12_ITS ---
Test Reason : PRE OP Blood Pressure : / mmHG Vent. Rate : 079 BPM Atrial Rate : 079 BPM P-R Int : 142 ms QRS Dur : 076 ms QT Int : 340 ms P-R-T Axes : 047 030 049 degrees QTc Int : 389 ms Normal sinus rhythm Normal ECG Confirmed by KIMMIE CHOI, SIMONE ([id number]), design editor ALBERTO EDGE ([id number]) on 12/13/2019 11:34:26 AM Referred By: CANDIDO FRY Confirmed By:SIMONE BURKS MD
[2019-12-11 11:08] LABS: Bacteria 0 SEEN /hpf (None Seen); Mucous, Urine 0 SEEN /hpf (<or=2+); Red Blood Cells-Urine 0 SEEN /hpf (0-5); Squamous Epithelial Cells - UA 0 SEEN /hpf (0-5)
[2019-12-11 12:22] LABS: Absolute Lymphocyte Count 1.34 X10^3/uL (0.83-4.51); Absolute Neutrophil Count 4.7 X10^3/uL (2.0-7.7); Basophil# 0.04 X10^3/uL; Basophil% 0.6 % (0-1); Eosinophil# 0.17 X10^3/uL; Eosinophils% 2.5 % (0-5); Hematocrit 47.9 % (40-54); Hemoglobin 14.8 g/dL (13.0-16.5); Lymphocyte # 1.34 X10^3/ul (4.0); Lymphocyte % 19.5 % (19-41); Mean Corp Hgb Conc 30.9 g/dL (32-36); Mean Corpuscular Hgb 27.9 pg (27.0-32.0); Mean Corpuscular Volume 90.4 fL (80-94); Mean Platelet Vol. 9.7 fl (6.2-12.0); Monocyte# 0.64 X10^3/uL; Monocyte% 9.3 % (0-10); NRBC Flagged by Analyzer 0 % (0-5); Neutrophil # 4.65 X10^3/uL (2.7-7.7); Neutrophil % 67.8 % (47-70); Platelet Count 326 K/mm3 (150-450); RBC Distribution Width CV 14.6 % (11.6-14.6); RBC Distribution Width SD 49.1 fl (35.1-43.9); White Blood Count 6.9 K/mm3 (4.4-11.0)
[2019-12-11 12:28] LABS: Color, Urine Yellow (Yellow); Glucose, Dipstick Normal (Normal); Ketone-Dipstick 5 mg/dl (Negative); Leukocyte Esterase-Dipstick 25 /ul (Negative); Nitrite-Dipstick Negative (Negative); Occult Blood-Urine Negative /ul (Negative); Protein-Dipstick 15 mg/dl (Negative); Specific Gravity, Urine 1.015 (1.002-1.030); Urine Bilirubin Dipstick Negative (Negative); Urine Clarity Sl. Cloudy (Clear); Urine Urobilinogen 1 mg/dl (Normal); Urine pH 6.5 (5.0 - 8.0)
[2019-12-11 12:40] LABS: White Blood Cells 0-5 SEEN /hpf (0-5)
[2019-12-11 13:11] LABS: ALB/GLOB Ratio 0.9 RATIO (0.9-2.4); AST(SGOT) 26 U/L (15-37); Alanine Aminotransfer ALT/SGPT 14 U/L (16-61); Albumin, Serum 3.7 g/dL (3.2-5.0); Alkaline Phosphatase 84 U/L (45-117); Anion Gap 1 (5-15); BUN 15 mg/dL (7-18); BUN/Creat Ratio 19.4 RATIO (10-20); Chloride 104 mmol/L (98-107); Creatinine, Serum 0.77 mg/dL (0.70-1.30); EST Glomerular Filtration Rate 105 mL/min (>60); Est Glom Filt Rate - Afr Amer 126 mL/min (>60); Globulin 3.9 g/dL (2.2-4.2); Glucose 86 mg/dL (74-106); Potassium 4.3 mmol/L (3.5-5.1); Protein, Total 7.6 g/dL (6.4-8.2); Sodium Level 137 mmol/L (136-145)
[2019-12-11 13:14] LABS: Vitamin B12 > 2000 pg/mL (211-911)
== END ==
PROVIDERS: PCP Family Medicine
DX: Z51.81 Encounter for therapeutic drug level monitoring (principal); Z79.899 Other long term (current) drug therapy; G20 Parkinson's disease; G62.9 Polyneuropathy, unspecified; R39.15 Urgency of urination; R41.89 Other symptoms and signs involving cognitive functions and awareness
CPT/HCPCS: 36415; 80053; 81001; 82607; 82746; 85025; 87086; 93005

== ENCOUNTER → 2019-12-22 | Outpatient (CLI) | payer MEDICARE, SELFPAY | END | disposition home or self-care (01) | PROVIDERS: PCP Family Medicine; Referring Provider Family Medicine; Visit Provider Family Medicine | DX: J20.9 Acute bronchitis, unspecified (principal) | CPT/HCPCS: 87635; U0003 ==

== ENCOUNTER → 2020-01-23 10:51 | Outpatient (CLI) | payer MEDICARE, SELFPAY ==
[2020-01-23 12:03] LABS: ALB/GLOB Ratio 0.9 RATIO (0.9-2.4); AST(SGOT) 23 U/L (15-37); Alanine Aminotransfer ALT/SGPT 12 U/L (16-61); Albumin, Serum 3.6 g/dL (3.2-5.0); Alkaline Phosphatase 105 U/L (45-117); Anion Gap 4 (5-15); BUN 18 mg/dL (7-18); BUN/Creat Ratio 19.1 RATIO (10-20); Calcium,Total 9.2 mg/dL (8.5-10.1); Chloride 103 mmol/L (98-107); Creatinine, Serum 0.94 mg/dL (0.70-1.30); EST Glomerular Filtration Rate 83 mL/min (>60); Est Glom Filt Rate - Afr Amer 101 mL/min (>60); Globulin 3.9 g/dL (2.2-4.2); Glucose 107 mg/dL (74-106); Potassium 4.2 mmol/L (3.5-5.1); Protein, Total 7.5 g/dL (6.4-8.2); Sodium Level 138 mmol/L (136-145)
== END ==
PROVIDERS: PCP Family Medicine
DX: Z51.81 Encounter for therapeutic drug level monitoring (principal)
CPT/HCPCS: 36415; 80053

== ENCOUNTER → 2020-01-30 | Outpatient (CLI) | payer MEDICARE, SELFPAY | END | disposition home or self-care (01) | LOC: LABSPEC 14:34 | PROVIDERS: PCP Family Medicine; Referring Provider Family Medicine; Visit Provider Family Medicine | DX: Z20.828 Contact with and (suspected) exposure to other viral communicable diseases (principal) | CPT/HCPCS: 87635; U0003 ==

== ENCOUNTER 2020-02-14 10:00 | Outpatient (RCR) | payer MEDICARE, SELFPAY ==
--- NOTE | 2019-08-28 17:25 | HP.PTEVAL_ITS ---
Patient's Visit Information JORDYN HOUSE is a 74 year old M referred to Physical Therapy by JOSÉ FRY with a diagnosis of PD. Date of Evaluation: 08/28/19 Physical Therapist: KENYA Kay - Visit Plan Frequency: 1x/Week Duration: 4 Months Plan: 1X/ 2 weeks and then 2X/ week 2 weeks for - Subjective Pt reports that he is decreasing in his abilities... not as strong, not as quick. He has not fallen down since last time he was here. He has been better about watching what he is doing. He trips on his own feet. He feels that his balance is not great. Everyday he feels that he is on a rollar coaster when his meds turn off and shut down. Dr asked the pt if he wanted to start PT again. At home he is doing about 30 min of exercises at home (squats, heel and toe raises, opp arm and leg, push ups, running in place). Pt has a lot of hallucinations. Pt is having trouble: - Pain R ankle pain Pain Intensity (Out of 10): 3 L ankle pain Pain Intensity (Out of 10): 2 - Objective Gait: pt walks with more of a running gate. He walks with decreased heel to toe on the R and walks mostly on his R toes. He does not take a large stride with gait. LE MMT: B hip flex 4/5, B knee flex and ext 4/5, B DF 3+/5, B PF 4- /5, B hip abd 4/5, B hip ext 3+/5 due to decrease hip ext AROM. Pt is able to sit to stand without the use of his UE's. Pt is able to walk on heels and toes with decrease ROM B. Pt struggles to roll from back to side to stomach. FGA: 15. Stairs: Pt goes up the stairs with 2 handrails and pulls self up the stairs with B arms and descends down the stiars with less control. BW Walking: Pt takes short stride and likes to run backwards with very little control. TU.11 - Balance Scores Functional Gait Assessment Score: 15 % Disability: 50.0000 - Goals Goal 1:: I HEP Goal Time Frame: 4-6 Weeks Goal 2:: Be able to walk with heel to toe gait pattern on the R leg with longer strides with least restrictive device Goal Time Frame: 8-12 Weeks Goal 3:: Pt to feel more confident with turning fast with his balance by 50% Goal Time Frame: 8-12 Weeks Goal 4:: Increase FGA by 5 points to decrease fall risk (score of 15 at then time of eval). Goal Time Frame: 8-12 Weeks Goal 5:: Be able to go up and down the stairs with 1 hand rail without having to pull himself up the stairs. Goal Time Frame: 8-12 Weeks Goal 6:: Be able to walk BW with large controlled steps 50 feet with SBA Goal Time Frame: 8-12 Weeks - Rehabilitation Potential Rehabilitation Potential: Good - Anticipated Interventions Patient/Client Instruction: Educate patient on: Condition, Plan of Care For the Purpose of:: To decrease pain, To increase ROM, To improve muscle performance and motor function, To improve ability to perform ADL's, To increase tolerance to activity/condition/position, To improve performance and independence with ADL's, To decrease level of supervision to perform tasks, To improve ability of physical actions for home/community/work/leisure, To improve gait and locomotor functions, To increase flexibility/ROM, To improve balance, To improve safety with gait Therapeutic Exercise to Include: Strength training, Endurance training, Balance training, Postural training, Flexibilty training, Gait and locomotor training, Passive ROM, Active ROM For the Purpose of:: To increase ROM, To improve nutrient delivery to tissue, To improve muscle performance and motor function, To improve ability to perform ADL's, To increase tolerance to activity/condition/position, To improve performance and independence with ADL's, To decrease level of supervision to perform tasks, To improve ability of physical actions for home/community/work/leisure, To improve gait and locomotor functions, To improve health of tissue, To decrease soft tissue restriction, To increase fle xibility/ROM, To improve endurance, To improve balance, To improve safety with gait Functional Training to Include: Gait training For the Purpose of:: To improve gait and locomotor functions, To improve safety with gait Manual Therapy Techniques to Include: Passive ROM For the Purpose of:: To increase ROM, To increase flexibility/ROM Thank you for the opportunity to evaluate your patient. For Medicare and Medicare HMO plans, please review the plan of care and approve it. It will need to be FAXED BACK to us at [phone] for Medicare purposes. For Medicare only, by signing this I certify the plan of care. Please let me know if there are questions or concerns regarding this plan of care. Physician Signature: Date:
--- NOTE | 2019-10-16 12:03 | HP.PTREVAL ---
JOSÉ FRY, It has been my pleasure to treat JORDYN HOUSE over the last 9 visits for PD. Please see the progress note below for an update on the physical therapy plan of care! Subjective: Pt reports that his walking is so-so. Pt feels and increase in 20% confidence with turning 180 degrees. He says that he is more aware of it. Objective/Function: FGA:13. Gait: still walks with short strides unles verbally cued to increased stride and then he does for a short time bedore he reverts back. Still struggles with opposite arm and leg activities ( in supine today noted)... kept doing same arm and leg. Twice today pt tried to sit without squaring up to the chair and therapist caught pt from missing the chair. Plan Plan: 1X/ 2 weeks and then 2X/ week 2 weeks for improved gait, overall better flexibility, sequencing activites, stair negotiation. Goals Goal 1:: I HEP Goal Time Frame: 4-6 Weeks Goal Progress: Progressing Goal 2:: Be able to walk with heel to toe gait pattern on the R leg with longer strides with least restrictive device Goal Time Frame: 8-12 Weeks Goal Progress: Progressing Goal 3:: Pt to feel more confident with turning fast with his balance by 50% Goal Time Frame: 8-12 Weeks Goal Progress: Progressing Goal 4:: Increase FGA by 5 points to decrease fall risk (score of 15 at then time of eval). Goal Time Frame: 8-12 Weeks Goal Progress: Not Progressing Goal 5:: Be able to go up and down the stairs with 1 hand rail without having to pull himself up the stairs. Goal Time Frame: 8-12 Weeks Goal Progress: Not Progressing Goal 6:: Be able to walk BW with large controlled steps 50 feet with SBA Goal Time Frame: 8-12 Weeks Goal Progress: Progressing Anticipated Interventions Patient/Client Instruction: Educate patient on: Condition, Plan of Care For the Purpose of:: To decrease pain, To increase ROM, To improve muscle performance and motor function, To improve ability to perform ADL's, To increase tolerance to activity/condition/position, To improve performance and independence with ADL's, To decrease level of supervision to perform tasks, To improve ability of physical actions for home/community/work/leisure, To improve gait and locomotor functions, To increase flexibility/ROM, To improve balance, To improve safety with gait Therapeutic Exercise to Include: Strength training, Endurance training, Balance training, Postural training, Flexibilty training, Gait and locomotor training, Passive ROM, Active ROM For the Purpose of:: To increase ROM, To improve nutrient delivery to tissue, To improve muscle performance and motor function, To improve ability to perform ADL's, To increase tolerance to activity/condition/position, To improve performance and independence with ADL's, To decrease level of supervision to perform tasks, To improve ability of physical actions for home/community/work/leisure, To improve gait and locomotor functions, To improve health of tissue, To decrease soft tissue restriction, To increase flexibility/ROM, To improve endurance, To improve balance, To improve safety with gait Functional Training to Include: Gait training For the Purpose of:: To improve gait and locomotor functions, To improve safety with gait Manual Therapy Techniques to Include: Passive ROM For the Purpose of:: To increase ROM, To increase flexibility/ROM Please do not hesitate to contact me at [phone] by phone or if you have questions or concerns regarding this new plan of care! Sincerely, Lida Schroeder MPT
--- NOTE | 2019-10-25 11:23 | HP.SP.AD_ITS ---
History - History Date of Eval: 10/13/19 Medical Diagnosis (from RX): Parkinsons Date of Onset of Diagnosis: 2006 Previous speech therapy: Yes Results: POsitive results for voice therapy in 2014 and 2016. Other Relevant Medical History/Diagnoses/Surgery: Dysphagia Medications related to this diagnosis: rytary x4 daily, no other medications listed Smoking Status: Former smoker Hx Smoking: No - Pain Is pain an issue with your current prescribed condition?: No - Personal Right Hearing Abillity: Normal Left Hearing Abillity: Normal Visual Assistive Devices: Glasses Patients Living Arrangements: With Significant Other Objective Dysphagia - Administered by Administered by: Self - [place] Thickened Liquids Administered via: Cup Laryngeal Elevation: Impaired Oral Holding: No Gagging: No Comments: Noted significant audible swallow and swallow initation appeared very delayed. He had a natural double to triple swallow. Last MBS was 2016 and patient is in agreement with completing another one with goals addressed at that time. - Results Swallowing Within Normal Limits: No Swallowing Diagnosis: Dysphagia Unspecified Dysphagia Assessment - Swallowing Impairment Contributing Factors to Swallowing Impairment: Delayed Swallow Initiation - Impact Impact on Safety & Functioning: Risk for Aspiration, Risk for Inadequate Nutrition/Hydration - Recommendations Modified Barium Swallow/Cookie Swallow Recommended: Yes Swallowing Treatment: Yes - Diet Texture Recommendations Solids Other: Regular Liquids: [place] Thick - Safety Saftey Precautions/Swallowing Recommendations (Check all that Apply): Upright Position at Least 30 Minutes After Meals, Small Sips & Bites when Eating Subjective Clinical Impression - Adult Clinical Impression Voice deterioration: reduction of volume or vocal quality with prolonged use: Present - Non-Phonatory Behaviors/Respiration Reduced loudness or vocal weakness: Present Limited breath support for speech: Present Objective Voice - Date of Diagnosis Previous Speech Therapy (If yes, describe): Yes Details of therapy: 2014 and 2016 therapy was completed with positive results. - Medications Familiar with on/off effect: Yes - Implantation Deep brain implantation (If yes, answer next question): Yes Date and Effectiveness: 2014 - Objective data Objective Data: Objective data: Sound pressure level (SPL acoustic correlation of vocal loudness) was measured with a sound level meter at a distance of 40 cm from the patient's mouth. Average conversational loudness is 70-80 dB and sustained phonation duration is 15 to 20 seconds for a typical adult. Sustained Phonation Intensity (dB SPL): 82 Sustained Phonatin duration (seconds): 15.3 Is the individual stimulable to increase vocal intensity: Yes Vocal Intensity at Conversational Level (dB SPL): 59 dB Other Impressions - Comments Voice therapy -: The results of the stimulability testing showed that Deandre is able to be effectively loud enough however in conversation he shows significant deficits in volume which made it difficult to hear in in average conversation in a quiet room. He was almost impossible to hear in a gym with background noise. His conversational loudness was signifciantly below average ( which is 70-80 dB when his was 59 dB) Plan - Plan Plan: Speech therapy is warranted for voice therapy to increase conversational volume for effective communication with all listeners. - Recommendations MBS: Yes Treatment Warranted: Yes - Frequency Frequency: 1x/Week Duration: 2 Months Visits in this POC: 8 - Prognosis Prognosis: Good - Goals that are Established: Determination:: Goals will be added/modified as deemed necessary and appropriate. Therapy will be discontinued when results of re-evaluation indicate therapy is no longer needed or lack of progress has been documented. - Goal #1-5 Goal #1: Deandre will increase his average vocal intensity level during sustained phonation to 85-90dB, by implementing established breathing techniques and completion of vocal strengthening exercises in both the clinic and home settings to improve speech intellibility in all communication attempts with minimal cuing in 2 out of 3 sessions. Goal #2: Deandre will increase his average vocal intensity during single word and sentence length productions to 75-80dB by implementing established breathing techniques and completion of vocal strengthening exercises in both the clinic and home settings to improve speech intellibility in all communication attempts with minimal cuing in 2 out of 3 sessions. Goal #3: Deandre will increase his average vocal intensity during converation to 75-80dB by implementing established breathing techniques and completion of vocal strengthening exercises in both the clinic and home settings to improve speech intellibility in all communication attempts with minimal cuing in 2 out of 3 sessions. Goal #4: Dysphagia goals will be added after MBS as warranted. Education - Patient has Indicated that the Following Identified Educational Needs: Cognitively Impaired - Patient Instruction Patient Education: Diagnosis, Treatment Plan
--- NOTE | 2019-11-20 11:56 | HP.PTREVAL ---
JOSÉ FRY, It has been my pleasure to treat JORDYN HOUSE over the last 17 visits for PD. Please see the progress note below for an update on the physical therapy plan of care! Subjective: Pt reports that he had to meyer to get here today. He walked into the waiting room with his shoes untied. He took his meds at 11:00 today so that is why his foot hurts a little more. Pt fell in his garage yesterday and he was not hurt other than his feelings. Pt reports that he is working out at home on his mat. 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 Objective/Function: Stairs: up and down recip pulling self up with B arm rails with retro body while pulling self up and he does not put full foot on the entire step. FGA: 14. Walking BW: steppage gait bw with small steps and he needs to slow down. Gait: walks with shuffled small fast steps with flexed trunk. Turning 180 degrees: small steppage gait with turns and he likes to advance his shoulders while his feet are still in place.. Plan Plan: Give HEP next visit to include some rotation and some balance exercises. 1X/ week for 5 weeks to work on HEP and improved gait, overall better flexibility, sequencing activites, stair negotiation. Goals Goal 1:: I HEP Goal Time Frame: 4-6 Weeks Goal Progress: Progressing Goal 2:: Be able to walk with heel to toe gait pattern on the R leg with longer strides with least restrictive device Goal Time Frame: 8-12 Weeks Goal Progress: Progressing Goal 3:: Pt to feel more confident with turning fast with his balance by 50% Goal Time Frame: 8-12 Weeks Goal Progress: Progressing Goal 4:: Increase FGA by 5 points to decrease fall risk (score of 15 at then time of eval). Goal Time Frame: 8-12 Weeks Goal Progress: Not Progressing Goal 5:: Be able to go up and down the stairs with 1 hand rail without having to pull himself up the stairs. Goal Time Frame: 8-12 Weeks Goal Progress: Not Progressing Goal 6:: Be able to walk BW with large controlled steps 50 feet with SBA Goal Time Frame: 8-12 Weeks Goal Progress: Progressing Anticipated Interventions Patient/Client Instruction: Educate patient on: Condition, Plan of Care For the Purpose of:: To decrease pain, To increase ROM, To improve muscle performance and motor function, To improve ability to perform ADL's, To increase tolerance to activity/condition/position, To improve performance and independence with ADL's, To decrease level of supervision to perform tasks, To improve ability of physical actions for home/community/work/leisure, To improve gait and locomotor functions, To increase flexibility/ROM, To improve balance, To improve safety with gait Therapeutic Exercise to Include: Strength training, Endurance training, Balance training, Postural training, Flexibilty training, Gait and locomotor training, Passive ROM, Active ROM For the Purpose of:: To increase ROM, To improve nutrient delivery to tissue, To improve muscle performance and motor function, To improve ability to perform ADL's, To increase tolerance to activity/condition/position, To improve performance and independence with ADL's, To decrease level of supervision to perform tasks, To improve ability of physical actions for home/community/work/leisure, To improve gait and locomotor functions, To improve health of tissue, To decrease soft tissue restriction, To increase flexibility/ROM, To improve endurance, To improve balance, To improve safety with gait Functional Training to Include: Gait training For the Purpose of:: To improve gait and locomotor functions, To improve safety with gait Manual Therapy Techniques to Include: Passive ROM For the Purpose of:: To increase ROM, To increase flexibility/ROM Please do not hesitate to contact me at [phone] by phone or if you have questions or concerns regarding this new plan of care! Sincerely, KENYA aKy
--- NOTE | 2020-01-03 14:05 | HP.PTREVAL_ITS ---
JOSÉ FRY, It has been my pleasure to treat JORDYN HOUSE over the last 22 visits for PD. Please see the progress note below for an update on the physical therapy plan of care! Subjective: Pt does not have a ride to due to her neighbor not coming now. His might bring him up here at least once a week. He has a bike at home... he might be able to bike once a week. Pt got a new upright walker so it will help his posture. Objective/Function: BW: pt is taking bigger steps. Gait: walks with decrease step length with the L leg and bent posture with occ toe scuffing. Stairs: up and down recip with 1 hand rail and he is not pulling on the rail. FGA: 15. Turning 180 degrees: pt likes to take several mini steps and catches toe when doing so. Plan Plan: Pt to do HEP ( copy scanned in chart and copy also in order file folder). Pt to be seen every 2 weeks for 4 visits to progress HEP if able and work on dual tasling, sequencing, balacne and gait Goals Goal 1:: I HEP Goal Time Frame: 4-6 Weeks Goal Progress: Goal Met Goal 2:: Be able to walk with heel to toe gait pattern on the R leg with longer strides with least restrictive device Goal Time Frame: 8-12 Weeks Goal Progress: Progressing Goal 3:: Pt to feel more confident with turning fast with his balance by 50% Goal Time Frame: 8-12 Weeks Goal Progress: Progressing Goal 4:: Increase FGA by 5 points to decrease fall risk (score of 15 at then ti me of eval). Goal Time Frame: 8-12 Weeks Goal Progress: Not Progressing Goal 5:: Be able to go up and down the stairs with 1 hand rail without having to pull himself up the stairs. Goal Time Frame: 8-12 Weeks Goal Progress: Goal Met Goal 6:: Be able to walk BW with large controlled steps 50 feet with SBA Goal Time Frame: 8-12 Weeks Goal Progress: Progressing Anticipated Interventions Patient/Client Instruction: Educate patient on: Condition, Plan of Care For the Purpose of:: To decrease pain, To increase ROM, To improve muscle p erformance and motor function, To improve ability to perform ADL's, To increase tolerance to activity/condition/position, To improve performance and independence with ADL's, To decrease level of supervision to perform tasks, To improve ability of physical actions for home/community/work/leisure, To improve gait and locomotor functions, To increase flexibility/ROM, To improve balance, To improve safety with gait Therapeutic Exercise to Include: Strength training, Endurance training, Balance training, Postural training, Flexibilty training, Gait and locomotor training, P assive ROM, Active ROM For the Purpose of:: To increase ROM, To improve nutrient delivery to tissue, To improve muscle performance and motor function, To improve ability to perform ADL's, To increase tolerance to activity/condition/position, To improve performance and independence with ADL's, To decrease level of supervision to perform tasks, To improve ability of physical actions for home/community/work/leisure, To improve gait and locomotor functions, To improve health of tissue, To decrease soft tissue restriction, To increase flexibility/ROM, To improve endurance, To improve balance, To improve safety with gait Functional Training to Include: Gait training For the Purpose of:: To improve gait and locomotor functions, To improve safety with gait Manual Therapy Techniques to Include: Passive ROM For the Purpose of:: To increase ROM, To increase flexibility/ROM Please do not hesitate to contact me at [phone] by phone or if you have questions or concerns regarding this new plan of care! Sincerely, Lida Schroeder, MPT
--- NOTE | 2020-02-14 11:07 | HP.PTREVAL_ITS ---
JOSÉ FRY, It has been my pleasure to treat JORDYN HOUSE over the last 26 visits for PD. Please see the progress note below for an update on the physical therapy plan of care! Subjective: Pt had a fall last night and landed on his R knee and stood right back up and started walking. He was side stepping to get out of the way of a friend and fell on a limestone driveway. His PD meds help him do things with less pain and takes Advil when needed. He reports that he has been doing picking up leaves and sticks....He is getting his exercises in 4-5 times a week. He is has trouble remembering them all but has the papers. Objective/Function: Pt reverts back to small steps after a few steps. Plan Plan: Pt to do HEP ( copy scanned in chart and copy also in order file folder). Work on stairs as pt had a hard time ascending step...with his R. Pt to be seen every 2 weeks for 4 visits to progress HEP if able and work on dual tasling, sequencing, balacne and gait Goals Goal 1:: I HEP Goal Time Frame: 4-6 Weeks Goal Progress: Goal Met Goal 2:: Be able to walk with heel to toe gait pattern on the R leg with longer strides with least restrictive device Goal Time Frame: 8-12 Weeks Goal Progress: Progressing Goal 3:: Pt to feel more confident with turning fast with his balance by 50% Goal Time Frame: 8-12 Weeks Goal Progress: Progressing Goal 4:: Increase FGA by 5 points to decrease fall risk (score of 15 at then t willem of eval). Goal Time Frame: 8-12 Weeks Goal Progress: Not Progressing Goal 5:: Be able to go up and down the stairs with 1 hand rail without having to pull himself up the stairs. Goal Time Frame: 8-12 Weeks Goal Progress: Goal Met Goal 6:: Be able to walk BW with large controlled steps 50 feet with SBA Goal Time Frame: 8-12 Weeks Goal Progress: Progressing Anticipated Interventions Patient/Client Instruction: Educate patient on: Condition, Plan of Care For the Purpose of:: To decrease pain, To increase ROM, To improve muscle performance and motor function, To improve ability to perform ADL's, To increase tolerance to activity/condition/position, To improve performance and independence with ADL's, To decrease level of supervision to perform tasks, To improve ability of physical actions for home/community/work/leisure, To improve gait and locomotor functions, To increase flexibility/ROM, To improve balance, To improve safety with gait Therapeutic Exercise to Include: Strength training, Endurance training, Balance training, Postural training, Flexibilty training, Gait and locomotor training, Passive ROM, Active ROM For the Purpose of:: To increase ROM, To improve nutrient delivery to tissue, To improve muscle performance and motor function, To improve ability to perform ADL's, To increase tolerance to activity/condition/position, To improve performance and independence with ADL's, To decrease level of supervision to perform tasks, To improve ability of physical actions for home/community/work/leisure, To improve gait and locomotor functions, To improve health of tissue, To decrease soft tissue restriction, To increase flexibility/ROM, To improve endurance, To improve balance, To improve safety with gait Functional Training to Include: Gait training For the Purpose of:: To improve gait and locomotor functions, To improve safety with gait Manual Therapy Techniques to Include: Passive ROM For the Purpose of:: To increase ROM, To increase flexibility/ROM Please do not hesitate to contact me at [phone] by phone or if you have questions or concerns regarding this new plan of care! Sincerely, KENYA Kay
== END 2020-02-14 19:00 | disposition home or self-care (01) ==
LOC: PT 10:00
PROVIDERS: PCP Family Medicine
DX: G20 Parkinson's disease (principal); R13.10 Dysphagia, unspecified; R47.89 Other speech disturbances
CPT/HCPCS: 92507; 92524; 92526; 97110; 97116; 97161; 97164; 97530

== ENCOUNTER → 2020-04-18 | Outpatient (CLI) | payer MEDICARE, SELFPAY | END | disposition home or self-care (01) | LOC: LABSPEC 13:42 | PROVIDERS: PCP Family Medicine; Referring Provider Family Medicine; Visit Provider Family Medicine | DX: R30.0 Dysuria (principal) | CPT/HCPCS: 87086; 87088 ==

== ENCOUNTER 2020-05-27 12:22 | Outpatient (RCR) | payer MEDICARE, SELFPAY | END 2020-05-27 23:59 | LOC: IMMUN 12:22 | PROVIDERS: PCP Family Medicine; Visit Provider Family Medicine | DX: Z23 Encounter for immunization (principal) | CPT/HCPCS: 0011A; 0012A ==

== ENCOUNTER → 2020-07-11 13:22 | Outpatient (CLI) | payer MEDICARE, SELFPAY ==
--- NOTE | 2020-07-11 13:25 | EKG12_ITS ---
Test Reason : PREOP Blood Pressure : / mmHG Vent. Rate : 087 BPM Atrial Rate : 087 BPM P-R Int : 142 ms QRS Dur : 078 ms QT Int : 344 ms P-R-T Axes : 053 017 043 degrees QTc Int : 413 ms Normal sinus rhythm Normal ECG Confirmed by VICTOR M CHOI, EDDY ([id number]), features editor ALBERTO EDGE ([id number]) on 07/12/2020 11:55:39 AM Referred By: YAMILA STEPHENSON SOIL EXPERT Confirmed By:EDDY DOW MD
== END ==
PROVIDERS: PCP Family Medicine
DX: G20 Parkinson's disease (principal)
CPT/HCPCS: 93005

== ENCOUNTER → 2020-09-18 14:04 | Outpatient (CLI) | payer MEDICARE, SELFPAY ==
[2020-09-18 17:54] LABS: Absolute Lymphocyte Count 1.24 X10^3/uL (0.83-4.51); Absolute Neutrophil Count 5.5 X10^3/uL (2.0-7.7); Basophil# 0.03 X10^3/uL; Basophil% 0.4 % (0-1); Eosinophil# 0.17 X10^3/uL; Eosinophils% 2.3 % (0-5); Hematocrit 46.5 % (40-54); Hemoglobin 14.7 g/dL (13.0-16.5); Lymphocyte # 1.24 X10^3/ul (0.83-4.51); Lymphocyte % 16.6 % (19-41); Mean Corp Hgb Conc 31.6 g/dL (32-36); Mean Corpuscular Hgb 30.4 pg (27.0-32.0); Mean Corpuscular Volume 96.1 fL (80-94); Mean Platelet Vol. 10.3 fl (6.2-12.0); Monocyte# 0.46 X10^3/uL; Monocyte% 6.2 % (0-10); NRBC Flagged by Analyzer 0 % (0-5); Neutrophil # 5.53 X10^3/uL (2.7-7.7); Neutrophil % 74.2 % (47-70); Platelet Count 274 K/mm3 (150-450); RBC Distribution Width CV 12.5 % (11.6-14.6); RBC Distribution Width SD 44.3 fl (35.1-43.9); Red Blood Count 4.84 M/mm3 (4.6-6.2); White Blood Count 7.5 K/mm3 (4.4-11.0)
[2020-09-18 18:22] LABS: Cholesterol 198 mg/dL (200); High Density Lipoprotein 40 mg/dL; Triglycerides 128 mg/dL; Very Low Density Lipoprotein 26 mg/dL (5-40)
== END ==
PROVIDERS: PCP Family Medicine; Referring Provider Family Medicine; Visit Provider Family Medicine
DX: E29.1 Testicular hypofunction (principal); E78.5 Hyperlipidemia, unspecified
CPT/HCPCS: 36415; 80061; 84403; 85025

== ENCOUNTER 2020-10-09 15:00 | Outpatient (RCR) | payer MEDICARE, SELFPAY ==
--- NOTE | 2020-03-13 10:57 | HP.PTREVAL ---
JOSÉ FRY, It has been my pleasure to treat JORDYN HOUSE over the last 28 visits for PD. Please see the progress note below for an update on the physical therapy plan of care! Subjective: [facility] and went off road and he had his walker and for some reason he reached over for a bottle of water and he leaned over the walker tipped over forward. He was able to get up with the help of another couple. His dropped him off. We discussed to not get off the walking path when he is walking with his walker. He reports that he gets his head in the car first and then turns around... he was getting yelled at by people in how to get in the car by himself. He has been having some other memory issues. No other falls except. Pt will see his Dr in Apr sometime. He is not able to come up for exercises here due to COVID. He is exercising everyday (at least 6 days a week). Objective/Function: Noticed decrease ability to do stairs, EC balance on foam, turning wuickly and feet not moving, picking up objects from the floor, normal gait..... STRESSED IMPORTANCE OF DOING HEP EVERYDAY AT HOME. AND USE OF AD. Gait: takes very short strides with bent knees and flexed trunk. Increases stride and bret with verbal cues. Stairs: goes up the steps with bent knees and does not straighten knee prior to bring up the other foot. He uses 2 hand rails and does them recip with feet turned out to compensate. He has trouble with descending the steps with where to place his foot. CATSIB: 95 (trouble with foam with EC... he falls forward). FGA: 13. He seems to have some issues with spatial awarness. He has trouble sitting down in a chair square. Plan Plan: Pt to be seen every 2 weeks for 4 visits to progress HEP if able and work on dual tasling, sequencing, balacne and gait. Work on EC on foam balance, squatting to get objects from the floor, stairs, spatial awarness to sit in a chair, quick controlled turns, BIG steps, dual tasking. Pt to continue with HEP... Goals Goal 1:: Be able to turn to sit in a chair with good spatial awarness and not sit on the edge of the chair or the chair handles. Goal Time Frame: 8-12 Weeks Goal Progress: Goal Met Goal 2:: Be able to walk with heel to toe gait pattern on the R leg with longer strides with least restrictive device. Goal Progress: Progressing Goal 3:: Be able to stand on foam with EC without using UE assist or help from therapist X 60 seconds Goal Time Frame: 8-12 Weeks Goal Progress: Progressing Goal 4:: Increase FGA by 5 points to decrease fall risk (score of 15 at then time of eval). Goal Progress: Not Progressing Goal 5:: Be able to go up and down the stairs with 1 hand rail with extending his knees without having to pull himself up the stairs. Goal Time Frame: 8-12 Weeks Goal Progress: Goal Met Goal 6:: Be able to walk BW with large controlled steps 50 feet with SBA Goal Progress: Progressing Anticipated Interventions Please do not hesitate to contact me at [phone] by phone or if you have questions or concerns regarding this new plan of care! Sincerely, Lida Schroeder, MPT
[2020-03-27 18:01] LABS: Absolute Lymphocyte Count 1.41 X10^3/uL (0.83-4.51); Absolute Neutrophil Count 6.8 X10^3/uL (2.0-7.7); Basophil# 0.04 X10^3/uL; Basophil% 0.4 % (0-1); Eosinophil# 0.19 X10^3/uL; Eosinophils% 2.1 % (0-5); Hematocrit 50.2 % (40-54); Hemoglobin 15.4 g/dL (13.0-16.5); Lymphocyte # 1.41 X10^3/ul (4.0); Lymphocyte % 15.5 % (19-41); Mean Corp Hgb Conc 30.7 g/dL (32-36); Mean Corpuscular Hgb 27.5 pg (27.0-32.0); Mean Corpuscular Volume 89.8 fL (80-94); Mean Platelet Vol. 9.8 fl (6.2-12.0); Monocyte# 0.65 X10^3/uL; Monocyte% 7.1 % (0-10); NRBC Flagged by Analyzer 0 % (0-5); Neutrophil % 74.7 % (47-70); Platelet Count 329 K/mm3 (150-450); RBC Distribution Width CV 14.7 % (11.6-14.6); Red Blood Count 5.59 M/mm3 (4.6-6.2); White Blood Count 9.1 K/mm3 (4.4-11.0)
[2020-03-27 18:06] LABS: Magnesium 2.1 mg/dL (1.6-2.6)
[2020-03-27 18:18] LABS: Vitamin D,25 Hydroxy 16.2 ng/mL
--- NOTE | 2020-09-04 13:20 | HP.PTREVAL ---
JOSÉ FRY, It has been my pleasure to treat JORDYN HOUSE over the last 41 visits for PD. Please see the progress note below for an update on the physical therapy plan of care! Subjective: He reports that he started shaking 13 days ago and lost strength and it went away the next Wednesday. He also had several accidents and could not get to the bathroom in time. He has been trying to wake up at night to go but he does not get a strong signal. He sees his neurologist next month but will see his PCP for ideas until then. He has double vision now and will go and see an eye Dr. He reports that he is low and that he takes one pill to help him. He has not fallen in the last 2 weeks but he has done some defensive falls when he feels like he will fall he will lower his knee down the ground and that is 1-2X/ day. When he does this, he does not have the rollator. Objective/Function: Discussed returning back to PCP for being down, freezing, not getting to the bathroom in time.... etc. Gait: pt had very short stride and short steppage gait today and very flexed trunk and knees today and could not get out of the posture... he was not able to change his posture or speed much today with verbal cues. Seated opp arm and leg was challenging for the pt today and would always revert back to same side. FGA 14 Plan Plan: See pt every other week for 2 additional visits for HEP and then transition to Parkinson's health and wellness class. Pt to call MD today to discuss change in symptoms. Goals Goal 1:: Be able to turn to sit in a chair with good spatial awarness and not sit on the edge of the chair or the chair handles. Goal Time Frame: 8-12 Weeks Goal Progress: Goal Met Goal 2:: Be able to walk with heel to toe gait pattern on the R leg with longer strides with least restrictive device. Goal Progress: Not Progressing Goal 3:: Be able to stand on foam with EC without using UE assist or help from therapist X 60 seconds Goal Time Frame: 8-12 Weeks Goal Progress: Goal Met Goal 4:: Increase FGA by 5 points to decrease fall risk (score of 15 at then time of eval). Goal Progress: Progressing Goal 5:: Be able to go up and down the stairs with 1 hand rail with extending his knees without having to pull himself up the stairs. Goal Time Frame: 8-12 Weeks Goal Progress: Goal Met Goal 6:: Be able to walk BW with large controlled steps 50 feet with SBA Goal Progress: Progressing Anticipated Interventions Please do not hesitate to contact me at [phone] by phone or if you have questions or concerns regarding this new plan of care! Sincerely, Lida Schroeder, MPT
--- NOTE | 2020-10-09 16:03 | HP.PTDCSUM ---
It has been my pleasure to treat JORDYN HOUSE referred by JOSÉ FRY, with the diagnosis of PD for a total of 43 visit(s). Discharge Date: 10/09/20 Please see the following information for a summary of their discharge status. Subjective: Pt reports that he can not believe how much muscle strength he has lost since COVID. Pt has fallen about 6 times in the last 4 weeks but he has learned to fall a lot softer. He is due for his meds now at 3pm. He is trying to garden at home in raised beds. He is doing some exercises at home and he is in the PD class here at [facility]. He reports that he is able to go down to the basement with 2 handrails to get to his basement. He just go a walk in shower and it is easier for him to get into. Pt has been having a lot of spasms in his feet. He is on antidepressent now and his mood is much better, not perfect but better. Pt has neuropathy and his found a needle stuck in his foot and he did not even feel it. Pt uses his walker inside and outside now. He is able to work in garden beds on his knees and is able to get up using his rollator, a pole, or a fence post to pull himself up. He did fall at his mother in laws garden and his got him up. ankle Pain Intensity (Out of 10): 6 % Improvement: 40 Objective/Function: Pt walking through DEPT today with rollator with arms out in front of him and very short choppy steps/ gait. Pt struggled today with stepping on his own feet when advancing his feet. Asad verbal cues to take larger steps... pt does better with visual cues and tactile cues then verbal cues at this point. BW walking: Had trouble today and took mini steps BW. FGA: 14. Stairs: up and down the stairs recip with 2 hand rails with verbal cues to weight shift fw when descending the stairs Goal 1:: Be able to turn to sit in a chair with good spatial awarness and not sit on the edge of the chair or the chair handles. Goal Progress: Goal Met Goal 2:: Be able to walk with heel to toe gait pattern on the R leg with longer strides with least restrictive device. Goal Progress: Not Progressing Goal 3:: Be able to stand on foam with EC without using UE assist or help from therapist X 60 seconds Goal Progress: Goal Met Goal 4:: Increase FGA by 5 points to decrease fall risk (score of 15 at then time of eval). Goal Progress: Progressing Goal 5:: Be able to go up and down the stairs with 1 hand rail with extending his knees without having to pull himself up the stairs. Goal Progress: Goal Met Goal 6:: Be able to walk BW with large controlled steps 50 feet with SBA Goal Progress: Progressing Plan: DC PT to home exercise program given over last several visits and to PD class that meets one time per week Discharge Comments: DC PT to HEP and [facility] PD class. If there are questions or concerns regarding this patient's physical therapy, please feel free to call me at [phone]. Thank you for the referral of this patient. Sincerely, Lida Schroeder, MPT
== END 2020-10-09 19:00 | disposition home or self-care (01) ==
LOC: PT 15:00
PROVIDERS: PCP Family Medicine
DX: G20 Parkinson's disease (principal); L81.9 Disorder of pigmentation, unspecified; E29.1 Testicular hypofunction; M81.0 Age-related osteoporosis without current pathological fracture; R13.10 Dysphagia, unspecified
CPT/HCPCS: 36415; 82306; 83735; 84403; 85025; 97110; 97116; 97530

== ENCOUNTER → 2020-10-29 15:09 | Outpatient (CLI) | payer MEDICARE, SELFPAY ==
[2020-10-29 17:46] LABS: PSA,Total - Annual Screen 0.74 ng/mL (0.00-4.00)
== END ==
LOC: LAB.FUTURE 15:11 → LAB 15:42
PROVIDERS: PCP Family Medicine; Referring Provider Nurse Practitioner Adult Health; Visit Provider Nurse Practitioner Adult Health
DX: Z12.5 Encounter for screening for malignant neoplasm of prostate (principal)
CPT/HCPCS: 36415; 84153; G0103

== ENCOUNTER 2021-07-14 10:47 | Outpatient (CLI) | payer MEDICARE, SELFPAY ==
[2021-07-14 11:35] LABS: ALB/GLOB Ratio 0.9 RATIO (0.9-2.4); AST(SGOT) 21 U/L (15-37); Alanine Aminotransfer ALT/SGPT 12 U/L (16-61); Albumin, Serum 3.6 g/dL (3.2-5.0); Alkaline Phosphatase 102 U/L (45-117); Anion Gap 3 (5-15); BUN 19 mg/dL (7-18); Calcium,Total 9.1 mg/dL (8.5-10.1); Chloride 105 mmol/L (98-107); Creatinine, Serum 0.79 mg/dL (0.70-1.30); EST Glomerular Filtration Rate 101 mL/min (>60); Est Glom Filt Rate - Afr Amer 123 mL/min (>60); Globulin 3.9 g/dL (2.2-4.2); Glucose 86 mg/dL (74-106); Protein, Total 7.5 g/dL (6.4-8.2); Sodium Level 140 mmol/L (136-145)
== END 2021-07-14 23:59 | disposition home or self-care (01) ==
LOC: LAB 10:49
PROVIDERS: PCP Family Medicine; Referring Provider Nurse Practitioner; Visit Provider Nurse Practitioner
DX: Z51.81 Encounter for therapeutic drug level monitoring (principal)
CPT/HCPCS: 36415; 80053

== ENCOUNTER → 2021-09-24 | Outpatient (CLI) | payer MEDICARE, SELFPAY ==
[2021-09-24 15:21] LABS: Absolute Lymphocyte Count 1.04 X10^3/uL (0.83-4.51); Absolute Neutrophil Count 5.5 X10^3/uL (2.0-7.7); Basophil# 0.05 X10^3/uL; Basophil% 0.7 % (0-1); Eosinophil# 0.17 X10^3/uL; Eosinophils% 2.3 % (0-5); Hematocrit 47.6 % (40-54); Hemoglobin 15.2 g/dL (13.0-16.5); Lymphocyte # 1.04 X10^3/ul (0.83-4.51); Lymphocyte % 14.2 % (19-41); Mean Corp Hgb Conc 31.9 g/dL (32-36); Mean Corpuscular Hgb 30.8 pg (27.0-32.0); Mean Corpuscular Volume 96.6 fL (80-94); Mean Platelet Vol. 9.8 fl (6.2-12.0); Monocyte# 0.52 X10^3/uL; Monocyte% 7.1 % (0-10); NRBC Flagged by Analyzer 0 % (0-5); Neutrophil # 5.51 X10^3/uL (2.7-7.7); Neutrophil % 75.4 % (47-70); Platelet Count 283 K/mm3 (150-450); RBC Distribution Width CV 14.1 % (11.6-14.6); RBC Distribution Width SD 50.5 fl (35.1-43.9); Red Blood Count 4.93 M/mm3 (4.6-6.2); White Blood Count 7.3 K/mm3 (4.4-11.0)
[2021-09-24 15:51] LABS: T4 Total, Thyroxin 8.8 ug/dL (4.5-12.1); Thyroid Stim Hormone (TSH) 3.61 uIU/mL (0.358-3.74)
== END | disposition home or self-care (01) ==
LOC: MFPLAB 11:35
PROVIDERS: PCP Family Medicine; Visit Provider Family Medicine
DX: E03.9 Hypothyroidism, unspecified (principal); E29.1 Testicular hypofunction
CPT/HCPCS: 36415; 84403; 84436; 84443; 85025

== ENCOUNTER 2022-02-17 11:30 | Outpatient (RCR) | payer MEDICARE, SELFPAY ==
--- NOTE | 2021-11-26 18:36 | HP.PTEVAL_ITS ---
Patient's Visit Information JORDYN HOUSE is a 76 year old M referred to Physical Therapy by DELIO MUÑOZ with a diagnosis of Parkinson's Disease. Date of Evaluation: 11/26/21 Physical Therapist: KENYA Kay - Visit Plan Frequency: 2x /Week Duration: 3 Months Plan: 2 X/ week for 8-12 weeks for gait training, balance training with directional control (4 square and TUG), functional transfers such as sit to stand, backing up to a chair, turning 180 degrees, BW walking. Slowing his thought process to be able to complete motions asked of him through visual cues or verbal commands. HEP: gastroc towel stretch in a chair and toe scrunches B, seated heel raises and toe raises. - Subjective Pt is here for progression of symptoms of his PD. He has a brain stimulator and on meds. He is in a PD class X 1 day a week where they do mostly chair exercises. He is struggling with a reason to keep going. 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 He reports that I can talk to his about this. He is on medications for depression. His is concerned about his depression and has made him disable all the guns in his house. The Dr is aware of his depression. He has not had any falls for the last 2-3 weeks. He has learned to fall on his hands and knees to brace himself or to brace himself on the wall etc. Walking is a problem because his feet do not want to move and he freezes up. He would like to work on the strength of his ankle and his toes - Objective Second toe B is more flexed then the rest and this bothers the patient as he feels his toes and ankle don't work like they should. Gait: walks with short stride and WBOS and flexed knees. Decreased heel to toe pattern and flexed trunk. He tends to veer when he does not have his rollator and the longer he walks the more flexed his knees become. Pt struggles with following verbal and visual cues.... he is not aware of his body movements and struggles with slowing down his thought process to mimic the movement. Pt struggles with turning to back up to the chair and square to a chair to sit down. Sit to stand: Pt sta nds with his balance on his heels and more retro with sitting to standing. Gastroc tight B. TUG 18.29. 4 Square: 19.42 (struggled with balance twice and therapist caught the patient... stepping BW caused the patient to be off balance. FGA: 12 - Balance/Special Test Scores Functional Gait Assessment Score: 12 % Disability: 60.0000 Lower Extremity Functional Score: 45 - Goals Goal 1:: I HEP and maintence of HEP Goal Time Frame: 8-12 Weeks Goal 2:: Decrease his tug time to less than 10 seconds (time at eval was 18.29) Goal Time Frame: 8-12 Weeks Goal 3:: Complete 4 square with no LOB with SBA and be able to follow the pattern of the 4 square without verbal commands Goal Time Frame: 8-12 Weeks Goal 4:: Be able to walk 250 feet with upright posture and continous long stride with knees in more extended position to work on endurance walking. Goal Time Frame: 8-12 Weeks - Rehabilitation Potential Rehabilitation Potential: Good - Anticipated Interventions Patient/Client Instruction: Educate patient on: Condition, Plan of Care For the Purpose of:: To improve gait and locomotor functions, To increase flexibility/ROM, To improve endurance, To improve balance Therapeutic Exercise to Include: Strength training, Endurance training, Balance training, Coordination, Body mechanics, Postural training, Flexibilty training, Gait and locomotor training, Neuromotor development, Passive ROM, Active ROM, Dynamic Lumbar Stabilization For the Purpose of:: To improve muscle performance and motor function, To improve ability to perform ADL's, To increase tolerance to activity/condition/position, To improve performance and independence with ADL's, To decrease level of supervision to perform tasks, To improve ability of physical actions for home/community/work/leisure, To improve gait and locomotor functions, To improve health of tissue, To decrease soft tissue restriction, To increase flexibility/ROM, To improve endurance, To improve balance, To improve safety with gait, To assume or resume ADL's Functional Training to Include: Gait training For the Purpose of:: To improve gait and locomotor functions, To improve safety with gait Manual Therapy Techniques to Include: Passive ROM For the Purpose of:: To increase ROM Thank you for the opportunity to evaluate your patient. For Medicare and Medicare HMO plans, please review the plan of care and approve it. It will need to be FAXED BACK to us at [phone] for Medicare purposes. For Medicare only, by signing this I certify the plan of care. Please let me know if there are questions or concerns regarding this plan of care. Physician Signature : Date:
--- NOTE | 2022-01-14 10:14 | HP.PTREVAL_ITS ---
DELIO MUÑOZ, It has been my pleasure to treat JORDYN HOUSE over the last 11 visits for Parkinson's Disease. Please see the progress note below for an update on the physical therapy plan of care! Subjective: Pt reports that he is frustrated. Objective/Function: Gait: Pt walks with flexed trunk and rollator out in front with short steps with flexed knees. When asked to take bigger steps he increases in speed. Stopped the pt and visually demonstrated larger steps and was able to do so for about 20 feet and slowly started to revert back to small steppage gait. Noticing lots of cognitive issues. sits down in the seat sideways of the Nu-step. Asked pt to look at his position and he said something isnt right...you keep changing the machines on me. TUG 14.86. 4 square: pt made the square leading to the right but it was not using the cross guides on the floor and could not cognitivly retrace his steps Plan Plan: 2 X/ week for 3 more weeks to work on SLOW deliberate commands and slowing the patient down so we can work better on moving are body instead of being so impulsive. PT for gait training, balance training with directional control (4 square and TUG), functional transfers such as sit to stand, backing up to a chair, turning 180 degrees, BW walking. Slowing his thought process to be able to complete motions asked of him through visual cues or verbal commands. HEP: gastroc towel stretch in a chair and toe scrunches B, seated heel raises and toe raises. Balance/Gait/Functional tests - Balance/Special Test Scores Functional Gait Assessment Score: 12 % Disability: 60.0000 Lower Extremity Functional Score: 43 Goals Goal 1:: I HEP and maintence of HEP Goal Time Frame: 8-12 Weeks Goal 2:: Decrease his tug time to less than 10 seconds (time at eval was 18.29) Goal Time Frame: 8-12 Weeks Goal Progress: Progressing Goal 3:: Complete 4 square with no LOB with SBA and be able to follow the pattern of the 4 square without verbal commands Goal Time Frame: 8-12 Weeks Goal 4:: Be able to walk 250 feet with upright posture and continous long stride with knees in more extended position to work on endurance walking. Goal Time Frame: 8-12 Weeks Anticipated Interventions Patient/Client Instruction: Educate patient on: Condition, Plan of Care For the Purpose of:: To improve gait and locomotor functions, To increase flexibility/ROM, To improve endurance, To improve balance Therapeutic Exercise to Include: Strength training, Endurance training, Balance training, Coordination, Body mechanics, Postural training, Flexibilty training, Gait and locomotor training, Neuromotor development, Passive ROM, Active ROM, Dy namic Lumbar Stabilization For the Purpose of:: To improve muscle performance and motor function, To improve ability to perform ADL's, To increase tolerance to activity/condit ion/position, To improve performance and independence with ADL's, To decrease level of supervision to perform tasks, To improve ability of physical actions for home/community/work/leisure, To improve gait and locomotor functions, To improve health of tissue, To decrease soft tissue restriction, To increase flexibility/ROM, To improve endurance, To improve balance, To improve safety with gait, To assume or resume ADL's Functional Training to Include: Gait training For the Purpose of:: To improve gait and locomotor functions, To improve safety with gait Manual Therapy Techniques to Include: Passive ROM For the Purpose of:: To increase ROM Please do not hesitate to contact me at [phone] by phone or if you have questions or concerns regarding this new plan of care! Sincerely, Lida Schroeder MPT
--- NOTE | 2022-02-17 12:45 | HP.PTDCSUM_ITS ---
It has been my pleasure to treat JORDYN HOUSE referred by DELIO MUÑOZ, with the diagnosis of Parkinson's Disease for a total of 18 visit(s). Discharge Date: 02/17/22 Please see the following information for a summary of their discharge status. Subjective: Pt reports that he is doing ok and might go to [place] soon at some point R foot Pain Intensity (Out of 10): 3 % Improvement: 40 Objective/Function: Pt needs to slow down his movements and he does much better. He has increase impulsivity and reacts to things that are unsafe at times like reaching for an automatic closing door with his hand because we stood at the door talking too long and the door started to close. Pt was given a safe HEP to do at home and to continue the PD class once a week. Gait: walks with flexed Trunk with walker out in front. He takes very short strides and stepage gait. TUG improved 10.69. 4 square: still needs verbal and tactile instructions to figure out out to do it. Goal 1:: I HEP and maintence of HEP Goal Progress: Goal Met Goal 2:: Decrease his tug time to less than 10 seconds (time at eval was 18.29) Goal Progress: Progressing 10.69 sec Goal 3:: Complete 4 square with no LOB with SBA and be able to follow the pattern of the 4 square without verbal commands Goal Progress: Progressing Goal 4:: Be able to walk 250 feet with upright posture and continous long stride with knees in more extended position to work on endurance walking. Goal Progress: Progressing Plan: DC PT to HEP Discharge Comments: DC PT to HEP If there are questions or concerns regarding this patient's physical therapy, please feel free to call me at [phone]. Thank you for the referral of this patient. Sincerely, Lida Schroeder, MPT Balance/Gait/Functional tests - Balance/Special Test Scores Functional Gait Assessment Score: 12 % Disability: 60.0000 Lower Extremity Functional Score: 42
== END 2022-02-17 19:00 | disposition home or self-care (01) ==
LOC: PT 11:30
PROVIDERS: PCP Family Medicine; Referring Provider Nurse Practitioner; Visit Provider Nurse Practitioner
DX: G20 Parkinson's disease (principal)
CPT/HCPCS: 97110; 97161; 97530

== ENCOUNTER 2022-05-17 11:09 | Emergency (ER) | payer MEDICARE, SELFPAY ==
[2022-05-17 11:10] VITALS: BP 129/80; PULSE 105; RESP 16; TEMP 36.2; O2SAT 97; BMI 26.6
--- NOTE | 2022-05-17 11:36 | EKG12_ITS ---
Test Reason : ALT LOC Blood Pressure : / mmHG Vent. Rate : 084 BPM Atrial Rate : 084 BPM P-R Int : 144 ms QRS Dur : 078 ms QT Int : 338 ms P-R-T Axes : 048 023 049 degrees QTc Int : 399 ms Normal sinus rhythm Normal ECG Confirmed by KIMMIE CHOI, SIMONE ([id number]), television news video editor ALBERTO EDGE ([id number]) on 05/18/2022 1:40:50 PM Referred By: Confirmed By:SIMONE BURKS MD
--- NOTE | 2022-05-17 11:36 | CT_ITS ---
EXAM: CT HEAD WITHOUT INTRAVENOUS CONTRAST CLINICAL INDICATION: altered mental status -- head injury TECHNIQUE: Multiple axial images were obtained of the head without intravenous contrast. This CT exam was performed using one or more of the following dose reduction techniques: automated exposure control, adjustment of the mA and/or kV according to patient size, and/or use of iterative reconstruction technique. This report was created using [employer] report generation technology. COMPARISON: MRI brain 01/02/2014 FINDINGS: BRAIN AND EXTRA-AXIAL SPACES: Areas of diminished white matter density noted within both cerebral hemispheres suggestive of chronic microvascular change. Prominence of the cortical sulci and ventricles related to volume loss change. No intra- or extra-axial hemorrhage. No evidence of acute infarct. No intracranial mass or mass effect. There is preservation of the gonsales/white matter interface. Posterior fossa structures are unremarkable. Basal cisterns are patent. BONES/JOINTS: No suspicious lytic or blastic abnormality. SINUSES: No acute sinusitis. MASTOID AIR CELLS: Normal. Clear. ORBITS: Visualized globes, extraocular muscles, optic nerves and retrobulbar fat appear unremarkable. TUBES, LINES AND DEVICES: Interval placement of bilateral midbrain neural stimulator wires. CT/Brain/Head without Contrast IMPRESSION: 1. No acute intracranial abnormality. 2. Senescent changes. 3. Bilateral midbrain stimulator wires in place. Electronically Signed: Pedro Reyes MD at 12:30 EST ,
--- NOTE | 2022-05-17 11:38 | EDS_ITS ---
HPI <BRANDON Trujillo - Last Filed: 05/17/22 13:30> History of Present Illness Chief Complaint: Mental Status Change Narrative Narrative: 76-year-old male with history of Parkinson's dementia, deep brain stimulator presents with altered mental status. His is the primary informant. Last year he was having hallucinations such as seeing animals and getting more confused so he moved into [facility] at the end of February 2022. Over the last 4 days he has had increasing confusion and is hallucinating that people are shooting in the hallway. He has been agitated and throwing his walker. He falls almost daily and fell twice yesterday striking his head on the windowsill. No LOC. No blood thinners. They checked a UA at the facility last night that was negative and sent him in this morning for evaluation. PFSH <BRANDON Trujillo - Last Filed: 05/17/22 13:30> [facility] Home Medications alfuzosin 10 mg tablet,extended release 24 hr 10 mg PO DAILY urinary 05/17/22 [History Last Taken Unknown] aspirin 81 mg tablet 81 mg PO DAILY heart health 05/17/22 [History Last Taken Unknown] carbidopa ER 48.75 mg-levodopa 195 mg capsule,extended release 3 cap PO 4X/DAY parkinsons 05/17/22 [History Last Taken Unknown] duloxetine 60 mg capsule,delayed release 60 mg PO DAILY depression 05/17/22 [History Last Taken Unknown] gabapentin 250 mg/5 mL oral solution 600 mg PO TID neuropathy 05/17/22 [History Last Taken Unknown] levothyroxine 88 mcg tablet (Synthroid) 88 mcg PO DAILY thyroid 05/17/22 [History Last Taken Unknown] melatonin 10 mg chewable tablet 10 mg PO QHS sleep 05/17/22 [History Last Taken Unknown] multivitamin 1 tab PO DAILY supplement 05/17/22 [History Last Taken Unknown] rivastigmine 9.5 mg/24 hour transdermal patch 1 patch transdermal DAILY cognitive impairment 05/17/22 [History Last Taken Unknown] Allergy/AdvReac Type Severity Reaction Status Date / Time niacin Allergy PT UNSURE Verified 05/17/22 11:14 OF REACTION sulfite Allergy PT UNSURE Verified 05/17/22 11:14 OF REACTION Social History Smoking Status: Never smoker ROS <BRANDON Trujillo - Last Filed: 05/17/22 13:30> ROS ED ROS Narrative Constitutional: Negative for fever, chills, malaise. CVS: Negative for palpitations, chest pain, syncope. Respiratory: Negative for shortness of breath, cough. GI: Negative for abdominal pain, nausea, vomiting, diarrhea, constipation, melena, hematochezia. : Negative for dysuria. Neuro: Negative for headache, motor/sensory dysfunction. Skin: Negative for rash, abscess, or wound. Musc: Negative for joint pain, swelling, trauma. EXAM <BRANDON Trujillo - Last Filed: 05/17/22 13:30> Physical Exam Narrative Exam Narrative: CONST: Patient sitting in no acute distress. EYES: Normal inspection. ENT: Normal inspection, moist mucous membranes. NECK: Normal inspection. RESP: No respiratory distress, CTAB. CVS: Regular rate and rhythm, no murmur, no gallop. ABD: Soft and nontender, no guarding or rebound, nondistended. SKIN: Color normal, no rash, warm, dry, intact. EXTREMITIES: Normal appearance, no pedal edema. NEURO: Patient knows his name, age, and location, but states he is here because there is a shoot out. Moving all extremities, chronic tremor in both arms, face symmetric, cranial nerves II through XII grossly intact. PSYCH: Normal affect. Const Vital Signs: 05/17/22 11:10 Temperature 97.1 F L Temperature Source Temporal Pulse Rate 105 H Respiratory Rate 16 Blood Pressure 129/80 H Blood Pressure Mean 96 Pulse Ox 97 Oxygen Delivery Method Room Air <Dr. Boo Jensen DO - Last Filed: 05/17/22 16:42> Physical Exam Const Vital Signs: 05/17/22 11:10 Temperature 97.1 F L Temperature Source Temporal Pulse Rate 105 H Respiratory Rate 16 Blood Pressure 129/80 H Blood Pressure Mean 96 Pulse Ox 97 Oxygen Delivery Method Room Air MDM <BRANDON Trujillo - Last Filed: 05/17/22 13:30> [facility] MDM Narrative Medical decision making narrative: Patient with history of Parkinson's dementia has had 4 days of increasing agitation and hallucinations. He appears well and nontoxic. Heart rate is 105 with otherwise normal vital signs. He is awake and alert and AO x3. He thinks he is here because there is shoot out in the hallway. He has no focal neurological deficits and an unremarkable exam. Labs and UA will be obtained to rule out a metabolic or infectious abnormality causing his mental status change. I will also obtain a CT head due to falling twice yesterday. CBC and BMP are unremarkable. UA negative for infection. Alcohol and drug screens are negative. CT brain is negative for acute findings. I suspect that his hallucinations and agitation are progression of his Parkinson's dementia. He will be evaluated by crisis for potential transfer to a [facility] psych unit. At this time he is medically cleared for transfer. I have personally performed a face to face assessment of the patient and have reviewed the DG Note. I performed a substantive portion of the visit including all aspects of the following. My park findings include: History is [patient seen in conjunction with physician speech language pathology assistant. Patient with increased agitation and increased hallucinations for the last 4 days since they changed his room at the assisted living facilities currently staying at. Patient has history of Parkinson's. Patient also falls daily and did fall hit his head twice yesterday. Patient with remote history of subdural hematoma that required evacuation. Currently not anticoagulated. Patient has been more agitated and has been throwing his walker at a fish tank and banging on mir. No recent illness. Denies chest pain or abdominal pain. Denies fever. He states he has been urinating more in usual.] Exam is [HEENT-PERRLA, EOMI. Cranial nerves II through XII grossly intact. TMs clear. Mucous membranes moist. No adenopathy. Cardiovascular-regular rate and rhythm without murmur or ectopy Lungs-clear to auscultation, chest wall stable without crepitus or subcu emphysema Abdomen-normoactive bowel sounds, soft, nontender, no rebound or rigidity, no peritoneal signs. Extremities-intact ?4, normal range of motion, normal pulses, atraumatic] Medical Decison Making [ ] Other additions or changes: [None] Lab Data Labs: Laboratory Results - last 24 hr 05/17/22 05/17/22 05/17/22 11:34 11:34 11:45 WBC 9.4 RBC 4.41 L Hgb 13.7 Hct 41.9 MCV 95.0 H MCH 31.1 MCHC 32.7 RDW Std Deviation 47.1 H RDW Coeff of Rupert 13.3 Plt Count 268 MPV 9.4 Immature Gran % (Auto) 0.300 Neut % (Auto) 87.0 H Lymph % (Auto) 5.4 L [place] % (Auto) 6.8 Eos % (Auto) 0.2 Baso % (Auto) 0.3 Absolute Neuts (auto) 8.2 H Absolute Lymphs (auto) 0.51 L Nucleated RBC % 0 Sodium 140 Potassium 3.8 Chloride 103 Carbon Dioxide 31.0 Anion Gap 6 BUN 16 Creatinine 0.73 Estim Creat Clear Calc 57.60 Est GFR (MDRD) Af Amer 135 Est GFR (MDRD) Non-Af 111 BUN/Creatinine Ratio 21.9 H Glucose 91 Calcium 9.3 Urine Color Yellow Urine Clarity Clear Urine pH 5.0 Ur Specific [place] 1.020 Urine Protein Negative Urine Glucose (UA) Normal Urine Ketones 15 H Urine Occult Blood Negative Urine Nitrite Negative Urine Bilirubin Negative Urine Urobilinogen 1 H Ur Leukocyte Esterase 25 H Urine RBC 0 SEEN Urine WBC 0 SEEN Ur Squamous Epith Cells 0 SEEN Urine Bacteria 0 SEEN Urine Mucus 0 SEEN Urine Opiates Screen Urine Methadone Screen Ur Barbiturates Screen Ur Phencyclidine Scrn Ur Amphetamines Screen MDMA (Ecstasy) Screen U Benzodiazepines Scrn Urine Cocaine Screen U Cannabinoids Screen Ur Drug Screen Comment Ethyl Alcohol 05/17/22 05/17/22 11:45 13:10 WBC RBC Hgb Hct MCV MCH MCHC RDW Std Deviation RDW Coeff of Rupert Plt Count MPV Immature Gran % (Auto) Neut % (Auto) Lymph % (Auto) [place] % (Auto) Eos % (Auto) Baso % (Auto) Absolute Neuts (auto) Absolute Lymphs (auto) Nucleated RBC % Sodium Potassium Chloride Carbon Dioxide Anion Gap BUN Creatinine Estim Creat Clear Calc Est GFR (MDRD) Af Amer Est GFR (MDRD) Non-Af BUN/Creatinine Ratio Glucose Calcium Urine Color Urine Clarity Urine pH Ur Specific [place] Urine Protein Urine Glucose (UA) Urine Ketones Urine Occult Blood Urine Nitrite Urine Bilirubin Urine Urobilinogen Ur Leukocyte Esterase Urine RBC Urine WBC Ur Squamous Epith Cells Urine Bacteria Urine Mucus Urine Opiates Screen NEGATIVE Urine Methadone Screen NEGATIVE Ur Barbiturates Screen NEGATIVE Ur Phencyclidine Scrn NEGATIVE Ur Amphetamines Screen NEGATIVE MDMA (Ecstasy) Screen NEGATIVE U Benzodiazepines Scrn NEGATIVE Urine Cocaine Screen NEGATIVE U Cannabinoids Screen NEGATIVE Ur Drug Screen Comment Ethyl Alcohol < 3.0 Radiography Diagnostic Testing: Clinical Impression(s) from Imaging Studies Brain CT 05/17/22 11:36 IMPRESSION: 1. No acute intracranial abnormality. 2. Senescent changes. 3. Bilateral midbrain stimulator wires in place. Electronically Signed: Perdo Reyes MD at 12:30 EST , <Dr. Boo Jensen, DO - Last Filed: 05/17/22 16:42> [facility] Narrative Medical decision making narrative: Patient with history of Parkinson's dementia has had 4 days of increasing agita tion and hallucinations. He appears well and nontoxic. Heart rate is 105 with otherwise normal vital signs. He is awake and alert and AO x3. He thinks he is here because there is shoot out in the hallway. He has no focal neurological deficits and an unremarkable exam. Labs and UA will be obtained to rule out a metabolic or infectious abnormality causing his mental status change. I will al so obtain a CT head due to falling twice yesterday. CBC and BMP are unremarkable. UA negative for infection. Alcohol and drug screens are negative. CT brain is negative for acute findings. I suspect that his hallucinations and agitation are progression of his Parkinson's dementia. He will be evaluated by crisis for potential transfer to a [facility] psych unit. At this time he is medically cleared for transfer. I have personally performed a face to face assessment of the patient and have reviewed the DG Note. I performed a substantive portion of the visit including all aspects of the following. My park findings include: History is [patient seen in conjunction with physician speech language pathology assistant. Patient with increased agitation and increased hallucinations for the last 4 days since they changed his room at the assisted living facilities currently staying at. Patient has history of Parkinson's. Patient also falls daily and did fall hit his head twice yesterday. Patient with remote history of subdural hematoma that required evacuation. Currently not anticoagulated. Patient has been more agitated and has been throwing his walker at a fish tank and banging on mir. No recent illness. Denies chest pain or abdominal pain. Denies fever. He states he has been urinating more in usual.] Exam is [HEENT-PERRLA, EOMI. Cranial nerves II through XII grossly intact. TMs clear. Mucous membranes moist. No adenopathy. Cardiovascular-regular rate and rhythm without murmur or ectopy Lungs-clear to auscultation, chest wall stable without crepitus or subcu emphysema Abdomen-normoactive bowel sounds, soft, nontender, no rebound or rigidity, no peritoneal signs. Extremities-intact ?4, normal range of motion, normal pulses, atraumatic] Medical Decison Making [patient with hallucinations and agitation. ED work-up unremarkable for organic causes. Patient case discussed with his as well. Discussed with crisis who would evaluate patient for [facility] psych placement. Patient's was in agreement.] Other additions or changes: [None] Lab Data Attestation: I reviewed the patient's lab results. Labs: Laboratory Results - last 24 hr 05/17/22 05/17/22 05/17/22 11:34 11:34 11:45 WBC 9.4 RBC 4.41 L Hgb 13.7 Hct 41.9 MCV 95.0 H MCH 31.1 MCHC 32.7 RDW Std Deviation 47.1 H RDW Coeff of Rupert 13.3 Plt Count 268 MPV 9.4 Immature Gran % (Auto) 0.300 Neut % (Auto) 87.0 H Lymph % (Auto) 5.4 L [place] % (Auto) 6.8 Eos % (Auto) 0.2 Baso % (Auto) 0.3 Absolute Neuts (auto) 8.2 H Absolute Lymphs (auto) 0.51 L Nucleated RBC % 0 Sodium 140 Potassium 3.8 Chloride 103 Carbon Dioxide 31.0 Anion Gap 6 BUN 16 Creatinine 0.73 Estim Creat Clear Calc 57.60 Est GFR (MDRD) Af Amer 135 Est GFR (MDRD) Non-Af 111 BUN/Creatinine Ratio 21.9 H Glucose 91 Calcium 9.3 Urine Color Yellow Urine Clarity Clear Urine pH 5.0 Ur Specific [place] 1.020 Urine Protein Negative Urine Glucose (UA) Normal Urine Ketones 15 H Urine Occult Blood Negative Urine Nitrite Negative Urine Bilirubin Negative Urine Urobilinogen 1 H Ur Leukocyte Esterase 25 H Urine RBC 0 SEEN Urine WBC 0 SEEN Ur Squamous Epith Cells 0 SEEN Urine Bacteria 0 SEEN Urine Mucus 0 SEEN Urine Opiates Screen Urine Methadone Screen Ur Barbiturates Screen Ur Phencyclidine Scrn Ur Amphetamines Screen MDMA (Ecstasy) Screen U Benzodiazepines Scrn Urine Cocaine Screen U Cannabinoids Screen Ur Drug Screen Comment Ethyl Alcohol 05/17/22 05/17/22 11:45 13:10 WBC RBC Hgb Hct MCV MCH MCHC RDW Std Deviation RDW Coeff of Rupert Plt Count MPV Immature Gran % (Auto) Neut % (Auto) Lymph % (Auto) [place] % (Auto) Eos % (Auto) Baso % (Auto) Absolute Neuts (auto) Absolute Lymphs (auto) Nucleated RBC % Sodium Potassium Chloride Carbon Dioxide Anion Gap BUN Creatinine Estim Creat Clear Calc Est GFR (MDRD) Af Amer Est GFR (MDRD) Non-Af BUN/Creatinine Ratio Glucose Calcium Urine Color Urine Clarity Urine pH Ur Specific [place] Urine Protein Urine Glucose (UA) Urine Ketones Urine Occult Blood Urine Nitrite Urine Bilirubin Urine Urobilinogen Ur Leukocyte Esterase Urine RBC Urine WBC Ur Squamous Epith Cells Urine Bacteria Urine Mucus Urine Opiates Screen NEGATIVE Urine Methadone Screen NEGATIVE Ur Barbiturates Screen NEGATIVE Ur Phencyclidine Scrn NEGATIVE Ur Amphetamines Screen NEGATIVE MDMA (Ecstasy) Screen NEGATIVE U Benzodiazepines Scrn NEGATIVE Urine Cocaine Screen NEGATIVE U Cannabinoids Screen NEGATIVE Ur Drug Screen Comment Ethyl Alcohol < 3.0 Radiography Diagnostic Testing: Clinical Impression(s) from Imaging Studies Brain CT 05/17/22 11:36 IMPRESSION: 1. No acute intracranial abnormality. 2. Senescent changes. 3. Bilateral midbrain stimulator wires in place. 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 carbidopa-levodopa 48.75-195 mg Capsule, Extended Release 3 cap PO 4X/DAY Rx Instructions: divide evenly over waking hours melatonin 10 mg Tablet,Chewable 10 mg PO QHS Primary Care Provider: Lorena Fulton Referrals: Lorena Fulton MD [Primary Care Provider] - Disposition Disposition: Home, Self Care
[2022-05-17 11:48] LABS: Bacteria 0 SEEN /hpf (None Seen); Color, Urine Yellow (Yellow); Glucose, Dipstick Normal (Normal); Ketone-Dipstick 15 mg/dl (Negative); Leukocyte Esterase-Dipstick 25 /ul (Negative); Mucous, Urine 0 SEEN /hpf (<or=2+); Nitrite-Dipstick Negative (Negative); Occult Blood-Urine Negative /ul (Negative); Protein-Dipstick Negative (Negative); Red Blood Cells-Urine 0 SEEN /hpf (0-5); Squamous Epithelial Cells - UA 0 SEEN /hpf (0-5); Urine Bilirubin Dipstick Negative (Negative); Urine Clarity Clear (Clear); Urine Urobilinogen 1 mg/dl (Normal); White Blood Cells 0 SEEN /hpf (0-5)
[2022-05-17 12:05] LABS: Absolute Lymphocyte Count 0.51 X10^3/uL (0.83-4.51); Absolute Neutrophil Count 8.2 X10^3/uL (2.0-7.7); Basophil# 0.03 X10^3/uL; Basophil% 0.3 % (0-1); Eosinophil# 0.02 X10^3/uL; Eosinophils% 0.2 % (0-5); Hematocrit 41.9 % (40-54); Hemoglobin 13.7 g/dL (13.0-16.5); Lymphocyte # 0.51 X10^3/ul (0.83-4.51); Lymphocyte % 5.4 % (19-41); Mean Corp Hgb Conc 32.7 g/dL (32-36); Mean Corpuscular Hgb 31.1 pg (27.0-32.0); Mean Platelet Vol. 9.4 fl (6.2-12.0); Monocyte# 0.64 X10^3/uL; Monocyte% 6.8 % (0-10); NRBC Flagged by Analyzer 0 % (0-5); Neutrophil # 8.15 X10^3/uL (2.7-7.7); POSITIVE DIFFERENTIAL YES; Platelet Count 268 K/mm3 (150-450); RBC Distribution Width CV 13.3 % (11.6-14.6); RBC Distribution Width SD 47.1 fl (35.1-43.9); Red Blood Count 4.41 M/mm3 (4.6-6.2); White Blood Count 9.4 K/mm3 (4.4-11.0)
[2022-05-17 12:06] LABS: Differential Indicated SCAN CRITERIA MET
[2022-05-17 12:22] LABS: Anion Gap 6 (5-15); BUN 16 mg/dL (7-18); BUN/Creat Ratio 21.9 RATIO (10-20); Calcium,Total 9.3 mg/dL (8.5-10.1); Chloride 103 mmol/L (98-107); Creatinine, Serum 0.73 mg/dL (0.70-1.30); EST Glomerular Filtration Rate 111 mL/min (>60); Est Glom Filt Rate - Afr Amer 135 mL/min (>60); Glucose 91 mg/dL (74-106); Potassium 3.8 mmol/L (3.5-5.1); Sodium Level 140 mmol/L (136-145)
[2022-05-17 13:09] LABS: Amphetamine Urine VISTA NEGATIVE (<1000 ng/mL); Barbiturate Urine VISTA NEGATIVE (< 200 ng/mL); Benzodiazepine Urine VISTA NEGATIVE (< 200 ng/mL); Cocaine Urine VISTA NEGATIVE (< 300 ng/mL); Ecstacy Urine VISTA NEGATIVE (< 500 ng/mL); Methadone Urine VISTA NEGATIVE (< 300 ng/mL); PCP Urine VISTA NEGATIVE (< 25 ng/mL); THC Urine VISTA NEGATIVE (< 50 ng/mL); Vista UDS pH Range 5
[2022-05-17 13:10] VITALS: RESP 16
[2022-05-17 13:27] LABS: Alcohol, Blood (Medical)-Serum < 3.0 mg/dL
--- NOTE | 2022-05-17 17:30 | ED.RN ---
FAXED COVID, EKG, URINE ALCOHOL RESULT PER THEIR REQUEST
[2022-05-17 18:09] VITALS: BP 112/62; PULSE 93; RESP 16; TEMP 36.6; O2SAT 98
--- NOTE | 2022-05-17 19:28 | ED.RN ---
PT SHARES CONCERN WITH THIS RN REGARDING PT SPECIAL MEDICATIONS. PT TO TAKE GABAPENTIN LIQUID AND ER CARBIDOPA-LEVIDOPA. PT HAS PT MEDS WITH HER, REPORTS THAT HE WILL NEED TO TAKE THEM WITH HIM WHEN TRANSFERRED. PT AWAITING [facility]. [facility], PT ADMISSIONS NURSE THEY DO NOT HAVE THE GABAPENTIN LIQUID OR CARBIDPODA LEVIDOPA ER TABLETS. PT INFORMED AND REPORTS SHE WILL GO BACK TO PT ASSISTED LIVING AND E [employer]UTION ARCHITECT MORE MEDICATION IN CONCERN THAT PT WILL RUN OUT BEFORE TRANSFER AND EVENTUAL DISCHARGE FROM [facility]. PT REPORTS THAT PT TAKES NECTAR THICK LIQUIDS AND HE SWALLOWS HIS MEDICATIONS WITH APPLESAUCE. PT WOULD LIKE TO BE CONTACTED WHEN THE PT IS ACCEPTED AND TRANSFERRED OUT OF ED. THIS RN OBTAINS MEDICATIONS FROM TO SEND TO PHARMACY FOR NON-FORMULARY MEDICATION ADMINISTRATION WHILE PT IS PRESENT IN ED. PHARMACY INFORMED, AND REPORTS THEY ARE WORKING ON ADDING THE NON FORMULARY MEDICATION TO PT CHART. PT DENIES ANY FURTHER QUESTIONS AT THIS TIME. PAUL BEYER INFORMED OF CONCERNS WELL.
--- NOTE | 2022-05-17 20:03 | NURSING ---
in [place] to speak with this RN. Stated that she spoke with patient's daughter and they have uneasy feelings about sending patient to a psych facility and they think that he will be more confused there. they would like to take him home and have his PCP see him first. notified Dr Mcfarland of this.
== END 2022-05-17 21:33 | disposition home or self-care (01) ==
PROVIDERS: Physician Assistant; Emergency Provider Emergency Medicine; PCP Family Medicine; Visit Provider Emergency Medicine
DX: G20 Parkinson's disease (principal); F02.80 Dementia in other diseases classified elsewhere, unspecified severity, without behavioral disturbance, psychotic disturbance, mood disturbance, and anxiety; Z79.82 Long term (current) use of aspirin; Z79.899 Other long term (current) drug therapy
CPT/HCPCS: 70450; 80048; 80307; 81001; 82077; 85025; 87811; 93005; 99282

== ENCOUNTER → 2022-09-03 | Outpatient (CLI) | payer MEDICARE, SELFPAY ==
--- NOTE | 2022-09-03 10:11 | EKG12_ITS ---
Test Reason : MEDICATION Blood Pressure : / mmHG Vent. Rate : 084 BPM Atrial Rate : 084 BPM P-R Int : 144 ms QRS Dur : 070 ms QT Int : 342 ms P-R-T Axes : -11 030 060 degrees QTc Int : 404 ms Normal sinus rhythm Normal ECG Confirmed by KIMMIE CHOI, SIMONE ([id number]), online editor ALBERTO EDGE ([id number]) on 09/04/2022 8:13:20 AM Referred By: CANDIDO FRY Confirmed By:SIMONE BURKS MD
== END | disposition home or self-care (01) ==
PROVIDERS: PCP Family Medicine; Referring Provider Nurse Practitioner; Visit Provider Nurse Practitioner
DX: Z51.81 Encounter for therapeutic drug level monitoring (principal)
CPT/HCPCS: 93005